=== PATIENT | female | born 1955 | race Caucasian/White ===

== ENCOUNTER → 2019-01-13 | Outpatient (CLI) | payer OTHER ==
[~2019-01-13] MED LIST: ALBU17IN INH; ALBU83IN INH; ALLO100T PO; ATEN50TA2 PO; BUDE180INH INH; CITA20TA6 PO; HYDR50TAB PO; KLOR10TA76 PO; LEVA1TAB2 PO; LEVO88TA3 PO; MELO7.5T7 PO; METF500T13 PO; NEUR300C PO; PRAV80TA2 PO; PRED-351 PO; SOMA350T PO
[2019-01-13 12:42] LABS: BASO # 0.1 10^3/uL (0.0-0.2); EOS # 0.2 10^3/uL (0.0-0.50); EOS % 2.9 % (0.0-3.0); HEMATOCRIT 44.6 % (36.0-47.0); HEMOGLOBIN 14.7 g/dl (12.0-15.5); LYMPH # 2.1 10^3/uL (1.5-4.5); LYMPH % 25.6 % (24.0-44.0); MEAN CORPUSCULAR HEMOGLOBIN 27.5 pg (27.0-33.0); MEAN CORPUSCULAR VOLUME 83.4 fl (80.0-96.0); MONO # 0.6 10^3/uL (0.0-0.8); MONO % 6.7 % (0.0-5.0); NEUTROPHILS # 5.2 10^3/uL (1.8-7.7); NEUTROPHILS % 63.4 % (36.0-66.0); PLATELET COUNT, AUTOMATED 261 10^3/uL (150-450); RED BLOOD COUNT 5.35 10^6/uL (4.00-5.40); WHITE BLOOD COUNT 8.2 10^3/uL (4.0-10.0)
[2019-01-13 13:38] LABS: BLOOD UREA NITROGEN 13 MG/DL (7-18); CALCIUM LEVEL 9.6 MG/DL (8.8-10.2); CARBON DIOXIDE LEVEL 31 MEQ/L (21-32); CHLORIDE LEVEL 95 MEQ/L (98-107); CHOLESTEROL LEVEL 210 MG/DL (<200); CHOLESTEROL RISK RATIO 3.818 (<5); CREATININE FOR GFR 0.64 MG/DL (0.55-1.30); FREE T4 1.22 NG/DL (0.76-1.46); GLOMERULAR FILTRATION RATE > 60.0 (>45); GLUCOSE, FASTING 99 MG/DL (70-100); HDL CHOLESTEROL 55 MG/DL (>40); LDL CHOLESTEROL 128 MG/DL (<100); NON-HDL-C 155 MG/DL; POTASSIUM SERUM 3.6 MEQ/L (3.5-5.1); SODIUM LEVEL 136 MEQ/L (136-145); TRIGLYCERIDES LEVEL 137 MG/DL (<150)
[2019-01-13 14:48] LABS: HEMOGLOBIN A1c 6.1 %
== END ==
LOC: M LAB 11:40
DX: Z00.00 Encounter for general adult medical examination without abnormal findings (principal)

== ENCOUNTER 2019-03-11 08:29 | Day surgery (SDC) | payer OTHER ==
[~2019-03-11] VITALS: Ht 167.6 cm; Wt 104.3 kg
[~2019-03-11 08:29] MED LIST changes: +ACETAMINOPHEN 325 MG TAB PO PRN; +ARNU1INH INH; +BSS with VANC/TOB/EPI for EYE CASES IR ONE; +CYCLOPENTOLATE 2% OPHTH SOLN 2ML BTL OD ONE; +HEALON DUET PRO(HEALON 10MG/ML 0.55ML & HEALON ENDOCOAT 30MG/ML 0.85ML) As Ordered ONE; +LIDOCAINE 1% SDV 5 ML VIAL As Ordered ONE; +LIDOCAINE 3.5 % 1ML OPHTH TOPICAL GEL OU ONE; +MIDAZOLAM INJ 2 MG/2 ML VIAL (J2250) As Ordered ONE; +MOBI4TAB PO; +MOXIFLOXACIN IN BSS 0.25MG/0.25ML INTRACAMERAL INJ (OR EYE ONLY)(J2280) As Ordered ONE; +OFLOXACIN 0.3 % (OCUFLOX) OPTH SOL 5ML OD ONE; +PHENYLEPHRINE 2.5% OPHTH SOL 2ML OD ONE; +PHENYLEPHRINE HCL 10 % OPHTH. SOL 5ML OD PRN; +POVIDONE-IODINE 5% OPHTH PREP SOL 30ML As Ordered ONE; +PROPARACAINE 0.5% OPHTH SOL 15ML OD PRN; +TRIAMCINOLONE PRES FR 40 MG/ML 1ML(TRIESENCE)(OR EYE ONLY)(J3300 PER 1MG) As Ordered ONE; +TROPICAMIDE 1% OPHTH SOLN 2ML OD ONE; +VENTAER INH
[2019-03-11] MEDS ORDERED: fentaNYL 100 MCG/2 ML INJECTION (J3010) As Ordered ONE (12:24)
[2019-03-11] MEDS ORDERED: TRIMETHOBENZAMIDE 300 MG CAP PO PRN (13:00)
[2019-03-11] MEDS ORDERED: AcetaZOLAMIDE 500 MG ER CAP PO ONE (13:00)
[2019-03-11 13:23] VITALS: BP 153/69
== END 2019-03-11 13:27 | disposition home or self-care (01) ==
LOC: M SDC 08:29
PROVIDERS: ATTEND Ophthalmology
DX: H25.9 Unspecified age-related cataract (principal); I10 Essential (primary) hypertension; E78.5 Hyperlipidemia, unspecified; E11.9 Type 2 diabetes mellitus without complications; F17.210 Nicotine dependence, cigarettes, uncomplicated; J45.909 Unspecified asthma, uncomplicated; M10.9 Gout, unspecified; F32.9 Major depressive disorder, single episode, unspecified; F41.9 Anxiety disorder, unspecified; Z79.51 Long term (current) use of inhaled steroids; Z79.899 Other long term (current) drug therapy; Z92.3 Personal history of irradiation; Z79.84 Long term (current) use of oral hypoglycemic drugs
CPT/HCPCS: 66984; 92015; J2250; J2280; J3010; J3300; V2632

== ENCOUNTER 2019-04-08 06:31 | Day surgery (SDC) | payer OTHER ==
[~2019-04-08] VITALS: Ht 167.6 cm; Wt 102.1 kg
[~2019-04-08 06:31] MED LIST changes: -BSS with VANC/TOB/EPI for EYE CASES IR ONE; -CYCLOPENTOLATE 2% OPHTH SOLN 2ML BTL OD ONE; -HEALON DUET PRO(HEALON 10MG/ML 0.55ML & HEALON ENDOCOAT 30MG/ML 0.85ML) As Ordered ONE; -LIDOCAINE 1% SDV 5 ML VIAL As Ordered ONE; -LIDOCAINE 3.5 % 1ML OPHTH TOPICAL GEL OU ONE; -MIDAZOLAM INJ 2 MG/2 ML VIAL (J2250) As Ordered ONE; -MOXIFLOXACIN IN BSS 0.25MG/0.25ML INTRACAMERAL INJ (OR EYE ONLY)(J2280) As Ordered ONE; -OFLOXACIN 0.3 % (OCUFLOX) OPTH SOL 5ML OD ONE; -PHENYLEPHRINE 2.5% OPHTH SOL 2ML OD ONE; -PHENYLEPHRINE HCL 10 % OPHTH. SOL 5ML OD PRN; -POVIDONE-IODINE 5% OPHTH PREP SOL 30ML As Ordered ONE; -PROPARACAINE 0.5% OPHTH SOL 15ML OD PRN; -TRIAMCINOLONE PRES FR 40 MG/ML 1ML(TRIESENCE)(OR EYE ONLY)(J3300 PER 1MG) As Ordered ONE; -TROPICAMIDE 1% OPHTH SOLN 2ML OD ONE
[2019-04-08] MEDS ORDERED: TROPICAMIDE 1% OPHTH SOLN 2ML OS ONE (07:00)
[2019-04-08] MEDS ORDERED: OFLOXACIN 0.3 % (OCUFLOX) OPTH SOL 5ML OS ONE (07:00)
[2019-04-08] MEDS ORDERED: CYCLOPENTOLATE 2% OPHTH SOLN 2ML BTL OS ONE (07:00)
[2019-04-08] MEDS ORDERED: PHENYLEPHRINE HCL 10 % OPHTH. SOL 5ML OS PRN (07:00)
[2019-04-08] MEDS ORDERED: LIDOCAINE 3.5 % 1ML OPHTH TOPICAL GEL OU ONE (07:00)
[2019-04-08] MEDS ORDERED: PHENYLEPHRINE 2.5% OPHTH SOL 2ML OS ONE (07:00)
[2019-04-08] MEDS ORDERED: BSS with VANC/TOB/EPI for EYE CASES IR ONE (07:00)
[2019-04-08] MEDS ORDERED: PROPARACAINE 0.5% OPHTH SOL 15ML OS PRN (07:01)
[2019-04-08] MEDS ORDERED: TRIAMCINOLONE PRES FR 40 MG/ML 1ML(TRIESENCE)(OR EYE ONLY)(J3300 PER 1MG) As Ordered ONE (07:05)
[2019-04-08] MEDS ORDERED: POVIDONE-IODINE 5% OPHTH PREP SOL 30ML As Ordered ONE (07:05)
[2019-04-08] MEDS ORDERED: LIDOCAINE 1% SDV 5 ML VIAL As Ordered ONE (07:05)
[2019-04-08] MEDS ORDERED: HEALON DUET PRO(HEALON 10MG/ML 0.55ML & HEALON ENDOCOAT 30MG/ML 0.85ML) As Ordered ONE (07:06)
[2019-04-08] MEDS ORDERED: MOXIFLOXACIN IN BSS 0.25MG/0.25ML INTRACAMERAL INJ (OR EYE ONLY)(J2280) As Ordered ONE (07:06)
[2019-04-08] MEDS ORDERED: fentaNYL 100 MCG/2 ML INJECTION (J3010) As Ordered ONE (09:12)
[2019-04-08] MEDS ORDERED: MIDAZOLAM INJ 2 MG/2 ML VIAL (J2250) As Ordered ONE (09:12)
[2019-04-08] MEDS ORDERED: ONDANSETRON 4MG/2ML VIAL (J2405) IV PRN (09:45)
[2019-04-08] MEDS ORDERED: AcetaZOLAMIDE 500 MG ER CAP As Ordered ONE (09:47)
[2019-04-08] MEDS ORDERED: AcetaZOLAMIDE 500 MG ER CAP PO ONE (10:00)
[2019-04-08] MEDS ORDERED: TRIMETHOBENZAMIDE 300 MG CAP PO PRN (10:00)
[2019-04-08 10:15] VITALS: BP 127/60
== END 2019-04-08 10:30 | disposition home or self-care (01) ==
LOC: M SDC 06:31
PROVIDERS: ATTEND Ophthalmology
DX: H25.9 Unspecified age-related cataract (principal); I10 Essential (primary) hypertension; E78.5 Hyperlipidemia, unspecified; E11.9 Type 2 diabetes mellitus without complications; E03.9 Hypothyroidism, unspecified; J45.909 Unspecified asthma, uncomplicated; Z79.84 Long term (current) use of oral hypoglycemic drugs; Z79.899 Other long term (current) drug therapy; Z79.51 Long term (current) use of inhaled steroids; F17.210 Nicotine dependence, cigarettes, uncomplicated; F32.9 Major depressive disorder, single episode, unspecified; F41.9 Anxiety disorder, unspecified; Z92.3 Personal history of irradiation
CPT/HCPCS: 66984; 92015; J2250; J2280; J3010; J3300; V2632

== ENCOUNTER 2019-08-11 10:16 | Emergency (ER) | payer MEDICARE, OTHER ==
[~2019-08-11] VITALS: Ht 167.6 cm; Wt 122.7 kg
[~2019-08-11 10:16] MED LIST changes: -ACETAMINOPHEN 325 MG TAB PO PRN
[2019-08-11 11:49] LABS: BASO # 0.1 10^3/uL (0.0-0.2); EOS # 0.5 10^3/uL (0.0-0.5); EOS % 6.1 % (0.0-3.0); HEMATOCRIT 45.5 % (36.0-47.0); HEMOGLOBIN 15.2 g/dl (12.0-15.5); LYMPH # 1.6 10^3/uL (1.5-5.0); LYMPH % 18.6 % (24.0-44.0); MEAN CORPUSCULAR HEMOGLOBIN 28.8 pg (27.0-33.0); MEAN CORPUSCULAR HGB CONC 33.4 g/dl (32.0-36.5); MEAN CORPUSCULAR VOLUME 86.3 fl (80.0-96.0); MONO # 0.5 10^3/uL (0.0-0.8); NEUTROPHILS # 5.7 10^3/uL (1.5-8.5); NEUTROPHILS % 67.9 % (36.0-66.0); PLATELET COUNT, AUTOMATED 280 10^3/uL (150-450); RED BLOOD COUNT 5.27 10^6/uL (4.00-5.40); WHITE BLOOD COUNT 8.4 10^3/uL (4.0-10.0)
--- NOTE | 2019-08-11 12:04 | REP ---
Clinical: Cellulitis with history of insect bite. Technique: AP, lateral, bilateral oblique views right foot . Findings: The osseous structures and joint spaces are intact and normal. There is no evidence for acute fracture or dislocation. Surrounding soft tissues are unremarkable. No subcutaneous emphysema or radiodense foreign body. Impression: No subcutaneous emphysema or foreign body. No osseous involvement. Electronically Signed by Abdulaziz Chaudhari MD 08/11/2019 11:56 A
[2019-08-11 12:12] LABS: ERYTHROCYTE SEDIMENTATION RATE 26 mm/hr (0-30)
[2019-08-11 12:14] VITALS: BP 133/72
[2019-08-11] MEDS ORDERED: CLEO300C2 PO (12:51)
== END 2019-08-11 13:10 | disposition home or self-care (01) ==
LOC: M ED 10:16
DX: S90.861A Insect bite (nonvenomous), right foot, initial encounter (principal); L03.115 Cellulitis of right lower limb; W57.XXXA Bitten or stung by nonvenomous insect and other nonvenomous arthropods, initial encounter; Y92.009 Unspecified place in unspecified non-institutional (private) residence as the place of occurrence of the external cause; F17.200 Nicotine dependence, unspecified, uncomplicated; I10 Essential (primary) hypertension; Z79.899 Other long term (current) drug therapy

== ENCOUNTER → 2019-08-13 | Outpatient (CLI) | payer MEDICARE, MEDICAID ==
[~2019-08-13] MED LIST changes: +CLEO300C2 PO
[2019-08-13 11:09] LABS: ALBUMIN 3.5 GM/DL (3.2-5.2); ALT/SGPT 16 U/L (12-78); BILIRUBIN,TOTAL 0.9 MG/DL (0.2-1.0); BLOOD UREA NITROGEN 11 MG/DL (7-18); CALCIUM LEVEL 9.3 MG/DL (8.8-10.2); CARBON DIOXIDE LEVEL 33 MEQ/L (21-32); CHLORIDE LEVEL 94 MEQ/L (98-107); CHOLESTEROL LEVEL 169 MG/DL (<200); CHOLESTEROL RISK RATIO 3.072 (<5); CREATININE FOR GFR 0.66 MG/DL (0.55-1.30); FREE T4 1.37 NG/DL (0.76-1.46); GLOMERULAR FILTRATION RATE > 60.0 (>45); GLUCOSE, FASTING 95 MG/DL (70-100); HDL CHOLESTEROL 55 MG/DL (>40); LDL CHOLESTEROL 84 MG/DL (<100); NON-HDL-C 114 MG/DL; POTASSIUM SERUM 3.4 MEQ/L (3.5-5.1); SODIUM LEVEL 133 MEQ/L (136-145); TOTAL PROTEIN 6.8 GM/DL (6.4-8.2); TRIGLYCERIDES LEVEL 149 MG/DL (<150)
[2019-08-13 11:18] LABS: CREATININE, URINE 43.2 MG/DL; MALB URINE SIEMENS < 5.0 MG/L; MAU/CREAT RATIO 11.5 MCG/MG (0.0-30.0)
[2019-08-13 11:20] LABS: HEMOGLOBIN A1c 6.1 %
== END ==
LOC: M LAB 08:57
PROVIDERS: ATTEND Physician Assistant
DX: E03.9 Hypothyroidism, unspecified (principal); E78.2 Mixed hyperlipidemia; I10 Essential (primary) hypertension; R73.01 Impaired fasting glucose

== ENCOUNTER → 2019-11-07 | Outpatient (CLI) | payer MEDICARE, OTHER ==
--- NOTE | 2019-11-07 11:07 | REP ---
BILATERAL SCREENING DIGITAL MAMMOGRAM WITH 3D TOMOSYNTHESIS: There are no palpable abnormalities or other breast complaints. The the patient states she has not had a clinical breast examination over a year. The Tyrer-Cuzick Score is: 5.1% . The the patient indicates that there has been 10 years since her prior mammogram and cannot recall where the prior study was performed. Therefore, there are no prior studies available. The current examination is a new baseline study. There are scattered areas of fibroglandular density. There is no dominant mass, micro calcific cluster or architectural distortion that would indicate malignancy. There are no additional findings on 3D tomosynthesiss. There is no change from the prior study. Impression: BIRADS/ACR category 1 mammogram. Negative. Recommendation: Routine annual screening mammography. This mammogram was interpreted with the aid of a FDA approved computer-aided detection system. A. Negative mammogram reports should not delay biopsy if a dominant or clinically suspicious mass is present. B. Not all breast cancers are identified by mammography or tomosynthesis. C. Adenosis and dense breasts may obscure an underlying neoplasm. Patient letter M1. Electronically Signed by Jh Moseley MD 11/07/2019 10:59 A
--- NOTE | 2019-11-12 13:34 | DEXA ---
AP SPINE L1 - L4 1.117 -0.6 1.0 LT FEMUR TOTAL 0.987 -0.2 1.0 LT NECK 0.849 -1.4 0.1 RT FEMUR TOTAL 0.950 -0.5 0.8 RT NECK 0.850 -1.4 0.1 TOTAL BODY TOTAL OTHER COMMENTS: Normal bone densitometry of the spine. There is low bone density of the left hip based on femoral neck T score -1.4, left. There is low bone density of the right hip based on femoral neck T score -1.4 right. There is degenerative change in the spine which may artificially elevate the BMD. FOLLOW-UP: Recommendation for the next bone density exam: 2 years. VAL
== END ==
LOC: M WHC 08:31
PROVIDERS: ATTEND Physician Assistant
DX: Z12.31 Encounter for screening mammogram for malignant neoplasm of breast (principal); Z13.820 Encounter for screening for osteoporosis; M85.89 Other specified disorders of bone density and structure, multiple sites

== ENCOUNTER → 2020-06-09 | Outpatient (CLI) | payer OTHER, MEDICAID ==
--- NOTE | 2020-07-08 10:45 | REP ---
LOW-DOSE LUNG SCREENING CT CLINICAL: High risk factors. TECHNIQUE: Low-dose CT images from the thoracic inlet to the upper abdomen using lung screening technique. COMPARISON: Chest CT dated 11/15/2008. FINDINGS: Minimal linear scarring at the left base is appreciated. The lung puga are otherwise clear and without consolidation, significant nodule, or mass lesion. No obvious effusion or pneumothorax. Tracheobronchial tree appears patent. IMPRESSION: Lung-RADS Category 1 examination. Management and recommendations include annual low-dose CT screening. MTDD
== END ==
LOC: M RAD 07:36
PROVIDERS: ATTEND Physician Assistant
DX: F17.210 Nicotine dependence, cigarettes, uncomplicated (principal)

== ENCOUNTER → 2020-07-16 | Outpatient (CLI) | payer OTHER, MEDICAID ==
[2020-07-16 10:50] LABS: HEMOGLOBIN A1c 8.1 %
[2020-07-16 11:01] LABS: ALBUMIN 3.2 GM/DL (3.2-5.2); ALT/SGPT 26 U/L (12-78); BILIRUBIN,TOTAL 1.1 MG/DL (0.2-1.0); BLOOD UREA NITROGEN 12 MG/DL (7-18); CALCIUM LEVEL 9.4 MG/DL (8.8-10.2); CARBON DIOXIDE LEVEL 31 MEQ/L (21-32); CHLORIDE LEVEL 98 MEQ/L (98-107); CREATININE FOR GFR 0.78 MG/DL (0.55-1.30); FREE T4 1.33 NG/DL (0.76-1.46); GLOMERULAR FILTRATION RATE > 60.0 (>45); GLUCOSE, FASTING 191 MG/DL (70-100); POTASSIUM SERUM 3.6 MEQ/L (3.5-5.1); SODIUM LEVEL 135 MEQ/L (136-145); TOTAL PROTEIN 6.7 GM/DL (6.4-8.2)
--- NOTE | 2020-07-26 14:15 | REP ---
RIGHT HUMERUS RADIOGRAPHS: 3-VIEWS HISTORY: Pain in the right arm. FINDINGS: There is osteoarthritic spurring at the glenohumeral articulation and osteoarthritic changes and chondrocalcinosis are noted at the acromioclavicular joint. These articulations are normally aligned. No fracture is seen. No abnormality is noted at the elbow on these radiographs. IMPRESSION: Glenohumeral and acromioclavicular joint osteoarthritis. No acute bony abnormality. DD: VAL
--- NOTE | 2020-07-26 14:16 | REP ---
LEFT KNEE SERIES AP AND LATERAL VIEWS HISTORY: Pain in the left knee. COMPARISON: Left knee radiographs 08/11/2010. FINDINGS: There is three-compartment osteoarthritis of the left knee. Joint space narrowing and sclerosis are noted in the medial compartment. Some joint space narrowing and spur formation seen in the patellofemoral compartment. There is a large subcortical cyst in the medial tibial plateau surrounded by sclerosis. This cyst measures 1.6 cm in greatest diameter. The findings have progressed in the interval since the 2009 study and the subcortical cyst is new. On lateral radiograph, there are ossific densities at the posterior joint line. There appear to be two of these densities in addition to posterior osteophyte formation. These could be loose bodies. There is no evidence of joint effusion. No erosive changes. IMPRESSION: Moderate to advanced three-compartment osteoarthritis, most pronounced in the medial compartment. Possible loose bodies posteriorly. Subcortical cyst formation in the medial tibial plateau. Chondrocalcinosis. MTDD
== END ==
LOC: M LAB 09:48
PROVIDERS: ATTEND Nurse Practitioner Family
DX: E03.9 Hypothyroidism, unspecified (principal); I10 Essential (primary) hypertension; R73.01 Impaired fasting glucose; M19.011 Primary osteoarthritis, right shoulder; M17.12 Unilateral primary osteoarthritis, left knee

== ENCOUNTER → 2021-05-10 | Outpatient (REF) | payer OTHER, MEDICAID ==
[2021-05-10 13:35] LABS: ALBUMIN 3.7 GM/DL (3.2-5.2); ALT/SGPT 21 U/L (12-78); BILIRUBIN,TOTAL 1.2 MG/DL (0.2-1.0); BLOOD UREA NITROGEN 13 MG/DL (7-18); CALCIUM LEVEL 9.9 MG/DL (8.8-10.2); CARBON DIOXIDE LEVEL 30 MEQ/L (21-32); CHLORIDE LEVEL 96 MEQ/L (98-107); CHOLESTEROL LEVEL 154 MG/DL (<200); CHOLESTEROL RISK RATIO 3.142 (<5); FREE T4 1.47 NG/DL (0.76-1.46); GLOMERULAR FILTRATION RATE > 60.0 (>45); GLUCOSE, FASTING 93 MG/DL (70-100); HDL CHOLESTEROL 49 MG/DL (>40); LDL CHOLESTEROL 75 MG/DL (<100); NON-HDL-C 105 MG/DL; POTASSIUM SERUM 4.3 MEQ/L (3.5-5.1); SODIUM LEVEL 135 MEQ/L (136-145); TRIGLYCERIDES LEVEL 151 MG/DL (<150)
[2021-05-10 13:36] LABS: MALB URINE SIEMENS 12.4 MG/L; MAU/CREAT RATIO 8.8 MCG/MG (0.0-30.0)
[2021-05-10 13:52] LABS: HEMOGLOBIN A1c 6.2 %
== END ==
LOC: M LABDRWAD 12:23
PROVIDERS: ATTEND Nurse Practitioner Family
DX: E11.9 Type 2 diabetes mellitus without complications (principal); E03.9 Hypothyroidism, unspecified

== ENCOUNTER → 2021-06-28 | Outpatient (REF) | payer OTHER, MEDICAID ==
[~2021-06-28] MED LIST changes: -KLOR10TA76 PO; +POTA-136 PO
[2021-06-28 18:52] LABS: BLOOD UREA NITROGEN 7 MG/DL (7-18); CALCIUM LEVEL 9.9 MG/DL (8.8-10.2); CARBON DIOXIDE LEVEL 31 MEQ/L (21-32); CHLORIDE LEVEL 92 MEQ/L (98-107); CREATININE FOR GFR 0.71 MG/DL (0.55-1.30); GLOMERULAR FILTRATION RATE > 60.0 (>45); GLUCOSE, FASTING 151 MG/DL (70-100); POTASSIUM SERUM 3.9 MEQ/L (3.5-5.1); SODIUM LEVEL 131 MEQ/L (136-145)
== END ==
LOC: M LABDRWAD 17:54
PROVIDERS: ATTEND Nurse Practitioner Family
DX: Z01.812 Encounter for preprocedural laboratory examination (principal)

== ENCOUNTER → 2021-11-11 | Outpatient (REF) | payer OTHER, MEDICAID ==
[2021-11-11 18:23] LABS: HEMOGLOBIN A1c 5.6 %
[2021-11-11 18:45] LABS: ALBUMIN 3.8 GM/DL (3.2-5.2); ALT/SGPT 15 U/L (12-78); BILIRUBIN,TOTAL 0.9 MG/DL (0.2-1.0); BLOOD UREA NITROGEN 13 MG/DL (7-18); CALCIUM LEVEL 10.2 MG/DL (8.8-10.2); CARBON DIOXIDE LEVEL 35 MEQ/L (21-32); CHLORIDE LEVEL 96 MEQ/L (98-107); CHOLESTEROL LEVEL 159 MG/DL (<200); CHOLESTEROL RISK RATIO 3.057 (<5); FREE T4 1.31 NG/DL (0.76-1.46); GLOMERULAR FILTRATION RATE > 60.0 (>45); GLUCOSE, FASTING 83 MG/DL (70-100); HDL CHOLESTEROL 52 MG/DL (>40); LDL CHOLESTEROL 67 MG/DL (<100); NON-HDL-C 107 MG/DL; POTASSIUM SERUM 3.9 MEQ/L (3.5-5.1); SODIUM LEVEL 135 MEQ/L (136-145); TRIGLYCERIDES LEVEL 200 MG/DL (<150)
== END ==
LOC: M LABDRWAD 16:55
PROVIDERS: ATTEND Nurse Practitioner Family
DX: E03.9 Hypothyroidism, unspecified (principal); E11.9 Type 2 diabetes mellitus without complications; E78.2 Mixed hyperlipidemia

== ENCOUNTER → 2022-01-05 | Outpatient (CLI) | payer OTHER, MEDICAID | LOC: M RAD 10:18 | PROVIDERS: ATTEND Nurse Practitioner Family | DX: Z87.891 Personal history of nicotine dependence (principal) ==

== ENCOUNTER → 2022-04-06 | Outpatient (CLI) | payer MEDICAID, OTHER ==
[~2022-04-06] MED LIST changes: +ALBU2.5V10 INH; -ALBU83IN INH
[2022-04-06 13:39] LABS: HEMOGLOBIN A1c 5.4 %
[2022-04-06 14:11] LABS: ALBUMIN 3.9 GM/DL (3.2-5.2); ALT/SGPT 15 U/L (12-78); BILIRUBIN,TOTAL 1.1 MG/DL (0.2-1.0); BLOOD UREA NITROGEN 9 MG/DL (7-18); CALCIUM LEVEL 10.6 MG/DL (8.8-10.2); CARBON DIOXIDE LEVEL 30 MEQ/L (21-32); CHLORIDE LEVEL 97 MEQ/L (98-107); CHOLESTEROL LEVEL 180 MG/DL (<200); CHOLESTEROL RISK RATIO 3.272 (<5); CREATININE FOR GFR 0.64 MG/DL (0.55-1.30); FREE T4 1.37 NG/DL (0.76-1.46); GLOMERULAR FILTRATION RATE > 60.0 (>45); GLUCOSE, FASTING 88 MG/DL (70-100); HDL CHOLESTEROL 55 MG/DL (>40); LDL CHOLESTEROL 97 MG/DL (<100); NON-HDL-C 125 MG/DL; SODIUM LEVEL 134 MEQ/L (136-145); TOTAL PROTEIN 7.3 GM/DL (6.4-8.2); TRIGLYCERIDES LEVEL 139 MG/DL (<150)
[2022-04-06 14:18] LABS: CREATININE, URINE 48.3 MG/DL; MALB URINE SIEMENS < 5.0 MG/L; MAU/CREAT RATIO 10.3 MCG/MG (0.0-30.0)
== END ==
LOC: M RAD 11:28
PROVIDERS: ATTEND Nurse Practitioner Family
DX: S92.424A Nondisplaced fracture of distal phalanx of right great toe, initial encounter for closed fracture (principal); E11.9 Type 2 diabetes mellitus without complications; E03.9 Hypothyroidism, unspecified; E78.2 Mixed hyperlipidemia

== ENCOUNTER → 2022-06-11 | Outpatient (CLI) | payer OTHER, MEDICAID ==
[~2022-06-11] MED LIST changes: +MELO15TA28 PO; +OZEM2INJ SC
== END ==
LOC: M LABSMTC 11:37
PROVIDERS: ATTEND Anesthesiology
DX: Z01.812 Encounter for preprocedural laboratory examination (principal); Z20.822 Contact with and (suspected) exposure to COVID-19

== ENCOUNTER 2022-06-14 07:03 | Day surgery (SDC) | payer OTHER, MEDICAID ==
[~2022-06-14] VITALS: Ht 162.6 cm; Wt 103.8 kg
[~2022-06-14 07:03] MED LIST changes: +NS 1,000 ML IV ONE
[2022-06-14] MEDS ORDERED: propofoL 200 MG/20 ML VIAL As Ordered ONE ×2 (08:01→08:15)
[2022-06-14 08:43] VITALS: BP 145/59
== END 2022-06-14 08:56 | disposition home or self-care (01) ==
LOC: M OPP 07:03
PROVIDERS: ATTEND Surgery
DX: Z12.11 Encounter for screening for malignant neoplasm of colon (principal); D12.0 Benign neoplasm of cecum; K63.5 Polyp of colon; I10 Essential (primary) hypertension; E11.9 Type 2 diabetes mellitus without complications; E03.9 Hypothyroidism, unspecified; J44.9 Chronic obstructive pulmonary disease, unspecified; Z79.51 Long term (current) use of inhaled steroids; Z79.84 Long term (current) use of oral hypoglycemic drugs; Z79.891 Long term (current) use of opiate analgesic; Z79.899 Other long term (current) drug therapy; F17.200 Nicotine dependence, unspecified, uncomplicated; Z96.82 Presence of neurostimulator; Z88.6 Allergy status to analgesic agent

== ENCOUNTER → 2022-09-19 | Outpatient (CLI) | payer OTHER ==
[~2022-09-19] MED LIST changes: -NS 1,000 ML IV ONE
[2022-09-19 16:15] LABS: CREATININE, URINE 49.1 MG/DL
[2022-09-19 16:16] LABS: MALB URINE SIEMENS < 5.0 MG/DL; MAU/CREAT RATIO 10.1 MCG/MG (0.0-30.0)
[2022-09-19 16:17] LABS: ALBUMIN 3.7 G/DL (3.2-5.2); ALKALINE PHOSPHATASE 61 U/L (46-116); ALT/SGPT 16 U/L (7.0-40); AST/SGOT 17 U/L (<34); BILIRUBIN,TOTAL 1.1 MG/DL (0.3-1.2); BLOOD UREA NITROGEN 10 MG/DL (9-23); CALCIUM LEVEL 10.1 MG/DL (8.3-10.6); CARBON DIOXIDE LEVEL 31 MMOL/L (20-31); CHLORIDE LEVEL 92 MMOL/L (98-107); CHOLESTEROL LEVEL 158 MG/DL (<200); CHOLESTEROL RISK RATIO 2.78 (<5); CREATININE FOR GFR 0.67 MG/DL (0.55-1.30); GLOMERULAR FILTRATION RATE > 60.0 (>45); GLUCOSE, FASTING 93 MG/DL (74-106); HDL CHOLESTEROL 56.8 MG/DL (>40); NON-HDL-C 101 MG/DL; POTASSIUM SERUM 3.8 MMOL/L (3.5-5.1); SODIUM LEVEL 130 MMOL/L (136-145); TOTAL PROTEIN 6.8 G/DL (5.7-8.2); TRIGLYCERIDES LEVEL 126 MG/DL (<150)
[2022-09-19 16:18] LABS: THYROID STIMULATING HORMONE 2.763 uIU/ML (0.55-4.78)
[2022-09-19 19:08] LABS: HEMOGLOBIN A1c 5.2 % (4.0-6.0)
== END ==
LOC: M PLALAB 13:51
PROVIDERS: ATTEND Nurse Practitioner Family
DX: E11.9 Type 2 diabetes mellitus without complications (principal); E03.9 Hypothyroidism, unspecified; E78.2 Mixed hyperlipidemia

== ENCOUNTER → 2022-09-19 | Outpatient (CLI) | payer MEDICAID, OTHER | LOC: M WHC 11:29 | PROVIDERS: ATTEND Nurse Practitioner Family | DX: Z12.31 Encounter for screening mammogram for malignant neoplasm of breast (principal); Z13.820 Encounter for screening for osteoporosis; M85.89 Other specified disorders of bone density and structure, multiple sites; E11.9 Type 2 diabetes mellitus without complications; E03.9 Hypothyroidism, unspecified; E78.2 Mixed hyperlipidemia ==

== ENCOUNTER → 2022-11-03 | Outpatient (CLI) | payer OTHER ==
[2022-11-03 17:33] LABS: URIC ACID 4.4 MG/DL (3.1-7.8)
[2022-11-03 17:36] LABS: CORTISOL AM 5.6 UG/DL (4.3-22.4)
== END ==
LOC: M LABDRWAD 11:57
PROVIDERS: ATTEND Nurse Practitioner Family
DX: E87.1 Hypo-osmolality and hyponatremia (principal)

== ENCOUNTER → 2023-03-21 | Outpatient (REF) | payer OTHER ==
[2023-03-21 13:51] LABS: HEMOGLOBIN A1c 5.2 % (4.0-6.0)
== END ==
LOC: M LABDRWAD 12:47
PROVIDERS: ATTEND Nurse Practitioner Family
DX: E11.9 Type 2 diabetes mellitus without complications (principal)

== ENCOUNTER 2023-04-02 15:02 | Inpatient (IN) | payer OTHER ==
[~2023-04-02] VITALS: Ht 162.6 cm; Wt 108.7 kg
[2023-04-02] MEDS ORDERED: ARIP1TAB6 PO (15:25)
[2023-04-02] MEDS: IPRATROPIUM 0.5MG/ALBUTEROL 2.5MG INH SOL UD 3ML (DUONEB) NEB PRN ×3 (15:57→16:06)
[2023-04-02 16:28] LABS: BASO % 0.3 % (0.0-1.0); EOS # 0.1 10^3/uL (0.0-0.5); EOS % 1.1 % (0.0-3.0); HEMATOCRIT 40.4 % (36.0-47.0); LYMPH # 1.3 10^3/uL (1.5-5.0); LYMPH % 18.1 % (24.0-44.0); MEAN CORPUSCULAR HEMOGLOBIN 27.8 pg (27.0-33.0); MEAN CORPUSCULAR HGB CONC 34.7 g/dl (32.0-36.5); MEAN CORPUSCULAR VOLUME 80.3 fl (80.0-96.0); MONO # 0.5 10^3/uL (0.0-0.8); NEUTROPHILS # 5.3 10^3/uL (1.5-8.5); NEUTROPHILS % 73.2 % (36.0-66.0); PLATELET COUNT, AUTOMATED 241 10^3/uL (150-450); RED BLOOD COUNT 5.03 10^6/uL (4.00-5.40); WHITE BLOOD COUNT 7.2 10^3/uL (4.0-10.0)
[2023-04-02 16:57] LABS: BLOOD UREA NITROGEN 12 MG/DL (9-23); CALCIUM LEVEL 8.8 MG/DL (8.3-10.6); CARBON DIOXIDE LEVEL 32 MMOL/L (20-31); CHLORIDE LEVEL 88 MMOL/L (98-107); CREATININE FOR GFR 0.68 MG/DL (0.55-1.30); GLOMERULAR FILTRATION RATE > 60.0 (>45); GLUCOSE, FASTING 110 MG/DL (74-106); POTASSIUM SERUM 3.1 MMOL/L (3.5-5.1); SODIUM LEVEL 126 MMOL/L (136-145)
[2023-04-02 17:12] LABS: ABG BASE EXCESS 1.9 (-2.0-2.0); ABG HCO3 25.7 MMOL/L (22.0-26.0); ABG O2 SATURATION 99.3 % (95.0-99.0); ABG PARTIAL PRESSURE CO2 37.8 mmHg (35.0-45.0); ABG STANDARD HCO3 26.2 MMOL/L. (22.0-26.0); ABG TOTAL CO2 26.9 MMOL/L (23.0-31.0); ABG pH (ARTERIAL) 7.451 UNITS (7.350-7.450)
[2023-04-02] MEDS ORDERED: POTASSIUM CHLORIDE 10MEQ SR TABLET PO ONE (17:55)
[2023-04-02] MEDS: SYMBICORT 160/4.5MCG INHALER 6GM INH SCH (20:00)
[2023-04-02] MEDS: methylPREDNISolone 40MG 1ML VIAL IV SCH (20:00)
[2023-04-02] MEDS: ALBUTEROL SULFATE 2.5MG/0.5ML INH NEB SOLN NEB SCH (20:00)
[2023-04-02 20:40] VITALS: BP 134/65; TEMP 97.9; O2SAT 91
[2023-04-02] MEDS: INSULIN LISPRO (NovoLOG) PER UNIT SC SCH (21:00)
[2023-04-02] MEDS: DOCUSATE SODIUM 100MG CAPSULE PO SCH (21:00)
[2023-04-02] MEDS ORDERED: DEXTROSE 50% 50ML SYRINGE IV PRN (21:35)
[2023-04-02] MEDS ORDERED: GLUCOSE 4GM CHEW TABLET PO PRN (21:35)
[2023-04-02] MEDS ORDERED: GLUCAGON INJ 1MG VIAL SC PRN (21:35)
[2023-04-02 22:31] LABS: OSMOLALITY URINE 270 MOSM/KG (50-1400)
[2023-04-02 22:50] LABS: SODIUM,RANDOM URINE 59 MMOL/L
[2023-04-02] MEDS: DEXTROMETHORPHAN 60MG/10ML SUSP 90ML BTL(DELSYM) PO SCH (23:09)
[2023-04-02] MEDS: AZITHROMYCIN 250MG TABLET PO SCH (23:10)
[2023-04-03] MEDS: ALBUTEROL SULFATE 2.5MG/0.5ML INH NEB SOLN NEB SCH ×6 (00:25→20:38)
[2023-04-03] MEDS: methylPREDNISolone 40MG 1ML VIAL IV SCH ×3 (04:29→22:00)
[2023-04-03 06:14] LABS: BASO % 0.2 % (0.0-1.0); EOS % 0.2 % (0.0-3.0); HEMOGLOBIN 13.9 g/dl (12.0-15.5); LYMPH # 0.4 10^3/uL (1.5-5.0); LYMPH % 10.7 % (24.0-44.0); MEAN CORPUSCULAR HEMOGLOBIN 27.6 pg (27.0-33.0); MEAN CORPUSCULAR HGB CONC 34.8 g/dl (32.0-36.5); MEAN CORPUSCULAR VOLUME 79.5 fl (80.0-96.0); MONO # 0.1 10^3/uL (0.0-0.8); MONO % 2.2 % (2.0-8.0); NEUTROPHILS # 3.5 10^3/uL (1.5-8.5); NEUTROPHILS % 86.5 % (36.0-66.0); PLATELET COUNT, AUTOMATED 244 10^3/uL (150-450); RED BLOOD COUNT 5.03 10^6/uL (4.00-5.40); WHITE BLOOD COUNT 4.1 10^3/uL (4.0-10.0)
[2023-04-03 06:26] VITALS: BP 157/68; TEMP 97.7; O2SAT 92
[2023-04-03 06:38] LABS: BLOOD UREA NITROGEN 8 MG/DL (9-23); CALCIUM LEVEL 9.2 MG/DL (8.3-10.6); CARBON DIOXIDE LEVEL 28 MMOL/L (20-31); CHLORIDE LEVEL 88 MMOL/L (98-107); CREATININE FOR GFR 0.52 MG/DL (0.55-1.30); GLOMERULAR FILTRATION RATE > 60.0 (>45); GLUCOSE, FASTING 180 MG/DL (74-106); POTASSIUM SERUM 3.3 MMOL/L (3.5-5.1); SODIUM LEVEL 125 MMOL/L (136-145)
[2023-04-03] MEDS: SYMBICORT 160/4.5MCG INHALER 6GM INH SCH ×2 (07:25→20:38)
[2023-04-03] MEDS: NYSTATIN 100,000 UNITS/GM TOPICAL PWD 15GM TOP SCH ×2 (08:24→22:01)
[2023-04-03] MEDS: ENOXAPARIN 40MG/0.4ML SYRINGE (J1650 PER 10MG) SC SCH (08:24)
[2023-04-03] MEDS: INSULIN LISPRO (NovoLOG) PER UNIT SC SCH ×4 (08:25→21:00)
[2023-04-03] MEDS: DOCUSATE SODIUM 100MG CAPSULE PO SCH ×2 (08:25→22:00)
[2023-04-03] MEDS ORDERED: FUROSEMIDE 40MG/4ML VIAL IV ONE ×2 (08:30→17:30)
[2023-04-03] MEDS ORDERED: SEMA0.257 SC (09:00)
[2023-04-03] MEDS ORDERED: CITA40TA7 PO (09:00)
[2023-04-03] MEDS ORDERED: HOME MED LIST COMPLETE! XX SCH (09:05)
[2023-04-03] MEDS: POTASSIUM CHLORIDE 10MEQ SR TABLET PO SCH (10:14)
[2023-04-03] MEDS: PRAVASTATIN 20 MG TAB PO SCH (10:14)
[2023-04-03] MEDS: MELOXICAM (MOBIC) 7.5 MG TAB PO SCH (10:15)
[2023-04-03] MEDS: CitaloPRAM (CeleXA) 20 MG TAB PO SCH (10:15)
[2023-04-03] MEDS: GABAPENTIN 300 MG CAP PO SCH ×2 (10:15→22:00)
[2023-04-03] MEDS: atenoloL 50 MG TAB PO SCH (10:21)
[2023-04-03] MEDS: LEVOTHYROXINE 88MCG TABLET (0.088 MG) PO SCH (10:41)
[2023-04-03] MEDS ORDERED: PREVNAR-20 VACCINE 0.5ML SYRINGE IM.IMMUN ONE (11:00)
[2023-04-03 14:00] VITALS: BP 115/77; TEMP 97.7; O2SAT 90
[2023-04-03] MEDS: DEXTROMETHORPHAN 60MG/10ML SUSP 90ML BTL(DELSYM) PO SCH ×2 (14:33→22:00)
[2023-04-03 14:54] LABS: BLOOD UREA NITROGEN 10 MG/DL (9-23); CALCIUM LEVEL 9.7 MG/DL (8.3-10.6); CARBON DIOXIDE LEVEL 30 MMOL/L (20-31); CHLORIDE LEVEL 86 MMOL/L (98-107); CREATININE FOR GFR 0.56 MG/DL (0.55-1.30); GLOMERULAR FILTRATION RATE > 60.0 (>45); GLUCOSE, FASTING 141 MG/DL (74-106); POTASSIUM SERUM 3.4 MMOL/L (3.5-5.1); SODIUM LEVEL 125 MMOL/L (136-145)
[2023-04-03] MEDS: SODIUM CHLORIDE 1 GM TAB PO SCH (18:27)
[2023-04-03 21:05] VITALS: BP 121/70; TEMP 97.7; O2SAT 90
[2023-04-03] MEDS: AZITHROMYCIN 250MG TABLET PO SCH (22:00)
[2023-04-03 22:52] LABS: BLOOD UREA NITROGEN 12 MG/DL (9-23); CALCIUM LEVEL 9.6 MG/DL (8.3-10.6); CARBON DIOXIDE LEVEL 32 MMOL/L (20-31); CHLORIDE LEVEL 87 MMOL/L (98-107); CREATININE FOR GFR 0.64 MG/DL (0.55-1.30); GLOMERULAR FILTRATION RATE > 60.0 (>45); GLUCOSE, FASTING 195 MG/DL (74-106); POTASSIUM SERUM 3.4 MMOL/L (3.5-5.1); SODIUM LEVEL 125 MMOL/L (136-145)
[2023-04-04] MEDS: ALBUTEROL SULFATE 2.5MG/0.5ML INH NEB SOLN NEB SCH ×7 (00:16→19:41)
[2023-04-04] MEDS: LEVOTHYROXINE 88MCG TABLET (0.088 MG) PO SCH (05:05)
[2023-04-04] MEDS: methylPREDNISolone 40MG 1ML VIAL IV SCH ×3 (05:05→20:31)
[2023-04-04 06:10] LABS: BASO % 0.1 % (0.0-1.0); EOS % 0.2 % (0.0-3.0); HEMATOCRIT 44.6 % (36.0-47.0); HEMOGLOBIN 14.9 g/dl (12.0-15.5); LYMPH # 0.8 10^3/uL (1.5-5.0); LYMPH % 8.3 % (24.0-44.0); MEAN CORPUSCULAR HEMOGLOBIN 27.2 pg (27.0-33.0); MEAN CORPUSCULAR HGB CONC 33.4 g/dl (32.0-36.5); MEAN CORPUSCULAR VOLUME 81.4 fl (80.0-96.0); MONO # 0.4 10^3/uL (0.0-0.8); MONO % 4.8 % (2.0-8.0); NEUTROPHILS # 7.8 10^3/uL (1.5-8.5); NEUTROPHILS % 85.9 % (36.0-66.0); PLATELET COUNT, AUTOMATED 327 10^3/uL (150-450); RED BLOOD COUNT 5.48 10^6/uL (4.00-5.40); WHITE BLOOD COUNT 9.1 10^3/uL (4.0-10.0)
[2023-04-04 06:32] LABS: ALBUMIN 3.9 G/DL (3.2-5.2); ALKALINE PHOSPHATASE 61 U/L (46-116); ALT/SGPT 9 U/L (7.0-40); AST/SGOT 19 U/L (<34); BILIRUBIN,DIRECT 0.4 MG/DL (<0.4); BILIRUBIN,TOTAL 1.3 MG/DL (0.3-1.2); BLOOD UREA NITROGEN 13 MG/DL (9-23); CALCIUM LEVEL 9.7 MG/DL (8.3-10.6); CARBON DIOXIDE LEVEL 31 MMOL/L (20-31); CHLORIDE LEVEL 88 MMOL/L (98-107); CREATININE FOR GFR 0.66 MG/DL (0.55-1.30); GLOMERULAR FILTRATION RATE > 60.0 (>45); GLUCOSE, FASTING 186 MG/DL (74-106); POTASSIUM SERUM 3.3 MMOL/L (3.5-5.1); SODIUM LEVEL 127 MMOL/L (136-145); TOTAL PROTEIN 6.9 G/DL (5.7-8.2)
[2023-04-04 07:11] VITALS: BP 145/74; TEMP 97.7; O2SAT 92
[2023-04-04] MEDS: SYMBICORT 160/4.5MCG INHALER 6GM INH SCH ×2 (07:32→19:41)
[2023-04-04] MEDS ORDERED: FUROSEMIDE 40MG/4ML VIAL IV ONE (07:45)
[2023-04-04] MEDS ORDERED: POTASSIUM CHLORIDE 10MEQ SR TABLET PO ONE (07:45)
[2023-04-04] MEDS: INSULIN LISPRO (NovoLOG) PER UNIT SC SCH ×4 (08:32→20:32)
[2023-04-04] MEDS: SODIUM CHLORIDE 1 GM TAB PO SCH ×3 (08:33→17:27)
[2023-04-04] MEDS: CitaloPRAM (CeleXA) 20 MG TAB PO SCH (08:33)
[2023-04-04] MEDS: GABAPENTIN 300 MG CAP PO SCH ×2 (08:33→20:32)
[2023-04-04] MEDS: DEXTROMETHORPHAN 60MG/10ML SUSP 90ML BTL(DELSYM) PO SCH ×2 (08:33→20:32)
[2023-04-04] MEDS: PRAVASTATIN 20 MG TAB PO SCH (08:33)
[2023-04-04] MEDS: ENOXAPARIN 40MG/0.4ML SYRINGE (J1650 PER 10MG) SC SCH (08:33)
[2023-04-04] MEDS: MELOXICAM (MOBIC) 7.5 MG TAB PO SCH (08:33)
[2023-04-04] MEDS: NYSTATIN 100,000 UNITS/GM TOPICAL PWD 15GM TOP SCH ×2 (08:34→20:31)
[2023-04-04] MEDS: atenoloL 50 MG TAB PO SCH (08:34)
[2023-04-04] MEDS: POTASSIUM CHLORIDE 10MEQ SR TABLET PO SCH (08:34)
[2023-04-04] MEDS: DOCUSATE SODIUM 100MG CAPSULE PO SCH ×2 (08:35→20:32)
[2023-04-04] MEDS ORDERED: POTASSIUM CHLORIDE 10MEQ SR TABLET PO SCH (09:00)
[2023-04-04] MEDS: allopurinoL 100 MG TAB PO SCH (12:24)
[2023-04-04 14:00] VITALS: BP 131/73; TEMP 98.2; O2SAT 95
[2023-04-04 15:18] LABS: BLOOD UREA NITROGEN 18 MG/DL (9-23); CALCIUM LEVEL 10.8 MG/DL (8.3-10.6); CARBON DIOXIDE LEVEL 30 MMOL/L (20-31); CHLORIDE LEVEL 88 MMOL/L (98-107); CREATININE FOR GFR 0.75 MG/DL (0.55-1.30); GLOMERULAR FILTRATION RATE > 60.0 (>45); GLUCOSE, FASTING 121 MG/DL (74-106); POTASSIUM SERUM 4.2 MMOL/L (3.5-5.1); SODIUM LEVEL 127 MMOL/L (136-145)
[2023-04-04 20:00] VITALS: BP 125/61; TEMP 98.3; O2SAT 96
[2023-04-04] MEDS: AZITHROMYCIN 250MG TABLET PO SCH (20:31)
[2023-04-04] MEDS ORDERED: RAMELTEON 8 MG TAB (ROZEREM) PO PRN (22:35)
[2023-04-05] MEDS: ALBUTEROL SULFATE 2.5MG/0.5ML INH NEB SOLN NEB SCH ×7 (00:09→23:13)
[2023-04-05] MEDS: LEVOTHYROXINE 88MCG TABLET (0.088 MG) PO SCH (05:20)
[2023-04-05] MEDS: methylPREDNISolone 40MG 1ML VIAL IV SCH ×3 (05:20→20:28)
[2023-04-05 05:24] VITALS: BP 114/60; TEMP 97.3; O2SAT 95
[2023-04-05 06:18] LABS: BASO % 0.1 % (0.0-1.0); EOS % 0.1 % (0.0-3.0); HEMATOCRIT 43.7 % (36.0-47.0); HEMOGLOBIN 14.8 g/dl (12.0-15.5); LYMPH # 1.2 10^3/uL (1.5-5.0); LYMPH % 10.4 % (24.0-44.0); MEAN CORPUSCULAR HEMOGLOBIN 27.7 pg (27.0-33.0); MEAN CORPUSCULAR HGB CONC 33.9 g/dl (32.0-36.5); MEAN CORPUSCULAR VOLUME 81.8 fl (80.0-96.0); MONO # 0.8 10^3/uL (0.0-0.8); MONO % 7.1 % (2.0-8.0); NEUTROPHILS % 81.8 % (36.0-66.0); PLATELET COUNT, AUTOMATED 366 10^3/uL (150-450); RED BLOOD COUNT 5.34 10^6/uL (4.00-5.40)
[2023-04-05 06:45] LABS: BLOOD UREA NITROGEN 18 MG/DL (9-23); CALCIUM LEVEL 10.7 MG/DL (8.3-10.6); CARBON DIOXIDE LEVEL 31 MMOL/L (20-31); CHLORIDE LEVEL 91 MMOL/L (98-107); CREATININE FOR GFR 0.69 MG/DL (0.55-1.30); GLOMERULAR FILTRATION RATE > 60.0 (>45); GLUCOSE, FASTING 149 MG/DL (74-106); SODIUM LEVEL 128 MMOL/L (136-145)
[2023-04-05] MEDS: SYMBICORT 160/4.5MCG INHALER 6GM INH SCH ×2 (07:50→17:59)
[2023-04-05] MEDS: PRAVASTATIN 20 MG TAB PO SCH (08:27)
[2023-04-05] MEDS: ENOXAPARIN 40MG/0.4ML SYRINGE (J1650 PER 10MG) SC SCH (08:27)
[2023-04-05] MEDS: GABAPENTIN 300 MG CAP PO SCH ×2 (08:27→20:42)
[2023-04-05] MEDS: DOCUSATE SODIUM 100MG CAPSULE PO SCH ×2 (08:27→20:41)
[2023-04-05] MEDS: INSULIN LISPRO (NovoLOG) PER UNIT SC SCH ×4 (08:27→20:52)
[2023-04-05] MEDS: POTASSIUM CHLORIDE 10MEQ SR TABLET PO SCH (08:29)
[2023-04-05] MEDS: SODIUM CHLORIDE 1 GM TAB PO SCH ×3 (08:29→18:06)
[2023-04-05] MEDS: NYSTATIN 100,000 UNITS/GM TOPICAL PWD 15GM TOP SCH ×2 (08:30→20:43)
[2023-04-05] MEDS: allopurinoL 100 MG TAB PO SCH (08:30)
[2023-04-05] MEDS: atenoloL 50 MG TAB PO SCH (08:30)
[2023-04-05] MEDS: MELOXICAM (MOBIC) 7.5 MG TAB PO SCH (08:30)
[2023-04-05] MEDS: CitaloPRAM (CeleXA) 20 MG TAB PO SCH (08:30)
[2023-04-05] MEDS: DEXTROMETHORPHAN 60MG/10ML SUSP 90ML BTL(DELSYM) PO SCH ×2 (09:28→20:56)
[2023-04-05 10:53] LABS: URIC ACID 5.4 MG/DL (3.1-7.8)
[2023-04-05] MEDS ORDERED: FUROSEMIDE 40MG/4ML VIAL IV ONE (10:55)
[2023-04-05 14:00] VITALS: BP 121/65; TEMP 98.2; O2SAT 95
[2023-04-05 17:49] LABS: BLOOD UREA NITROGEN 24 MG/DL (9-23); CALCIUM LEVEL 10.6 MG/DL (8.3-10.6); CARBON DIOXIDE LEVEL 32 MMOL/L (20-31); CHLORIDE LEVEL 91 MMOL/L (98-107); CREATININE FOR GFR 0.73 MG/DL (0.55-1.30); GLOMERULAR FILTRATION RATE > 60.0 (>45); GLUCOSE, FASTING 168 MG/DL (74-106); SODIUM LEVEL 130 MMOL/L (136-145)
[2023-04-05 19:50] VITALS: BP 139/54; TEMP 98.1; O2SAT 91
[2023-04-05] MEDS: AZITHROMYCIN 250MG TABLET PO SCH (20:42)
[2023-04-05 23:02] VITALS: O2SAT 85
[2023-04-05 23:03] VITALS: O2SAT 87
[2023-04-05 23:05] VITALS: O2SAT 90
[2023-04-06] MEDS: ALBUTEROL SULFATE 2.5MG/0.5ML INH NEB SOLN NEB SCH ×6 (02:57→23:12)
[2023-04-06] MEDS: methylPREDNISolone 40MG 1ML VIAL IV SCH ×3 (03:31→20:26)
[2023-04-06 05:52] VITALS: BP 115/58; TEMP 97.9; O2SAT 94
[2023-04-06 06:09] LABS: BASO % 0.2 % (0.0-1.0); EOS % 0.1 % (0.0-3.0); HEMATOCRIT 42.5 % (36.0-47.0); HEMOGLOBIN 14.1 g/dl (12.0-15.5); LYMPH # 0.7 10^3/uL (1.5-5.0); LYMPH % 6.9 % (24.0-44.0); MEAN CORPUSCULAR HEMOGLOBIN 27.3 pg (27.0-33.0); MEAN CORPUSCULAR HGB CONC 33.2 g/dl (32.0-36.5); MEAN CORPUSCULAR VOLUME 82.4 fl (80.0-96.0); MONO # 0.5 10^3/uL (0.0-0.8); MONO % 5.4 % (2.0-8.0); NEUTROPHILS # 8.2 10^3/uL (1.5-8.5); NEUTROPHILS % 85.9 % (36.0-66.0); PLATELET COUNT, AUTOMATED 329 10^3/uL (150-450); RED BLOOD COUNT 5.16 10^6/uL (4.00-5.40); WHITE BLOOD COUNT 9.5 10^3/uL (4.0-10.0)
[2023-04-06 06:31] LABS: BLOOD UREA NITROGEN 24 MG/DL (9-23); CALCIUM LEVEL 9.6 MG/DL (8.3-10.6); CARBON DIOXIDE LEVEL 33 MMOL/L (20-31); CHLORIDE LEVEL 92 MMOL/L (98-107); GLOMERULAR FILTRATION RATE > 60.0 (>45); GLUCOSE, FASTING 171 MG/DL (74-106); POTASSIUM SERUM 4.4 MMOL/L (3.5-5.1); SODIUM LEVEL 130 MMOL/L (136-145)
[2023-04-06] MEDS: LEVOTHYROXINE 88MCG TABLET (0.088 MG) PO SCH (06:34)
[2023-04-06] MEDS: SYMBICORT 160/4.5MCG INHALER 6GM INH SCH ×2 (07:14→19:26)
[2023-04-06] MEDS: GABAPENTIN 300 MG CAP PO SCH ×2 (08:17→20:25)
[2023-04-06] MEDS: DOCUSATE SODIUM 100MG CAPSULE PO SCH ×2 (08:17→20:25)
[2023-04-06] MEDS: POTASSIUM CHLORIDE 10MEQ SR TABLET PO SCH (08:17)
[2023-04-06] MEDS: PRAVASTATIN 20 MG TAB PO SCH (08:17)
[2023-04-06] MEDS: CitaloPRAM (CeleXA) 20 MG TAB PO SCH (08:17)
[2023-04-06] MEDS: INSULIN LISPRO (NovoLOG) PER UNIT SC SCH ×4 (08:17→20:26)
[2023-04-06] MEDS: SODIUM CHLORIDE 1 GM TAB PO SCH ×3 (08:17→18:19)
[2023-04-06] MEDS: allopurinoL 100 MG TAB PO SCH (08:18)
[2023-04-06] MEDS: MELOXICAM (MOBIC) 7.5 MG TAB PO SCH (08:18)
[2023-04-06] MEDS: atenoloL 50 MG TAB PO SCH (08:18)
[2023-04-06] MEDS: ENOXAPARIN 40MG/0.4ML SYRINGE (J1650 PER 10MG) SC SCH (08:18)
[2023-04-06] MEDS: NYSTATIN 100,000 UNITS/GM TOPICAL PWD 15GM TOP SCH ×2 (08:18→20:27)
[2023-04-06] MEDS: DEXTROMETHORPHAN 60MG/10ML SUSP 90ML BTL(DELSYM) PO SCH ×2 (10:22→20:25)
[2023-04-06 10:55] VITALS: BP 120/71; TEMP 97.5; O2SAT 97
[2023-04-06 14:24] VITALS: BP 112/50; TEMP 97.3; O2SAT 95
[2023-04-06] MEDS: AZITHROMYCIN 250MG TABLET PO SCH (20:25)
[2023-04-06 21:03] VITALS: BP 130/78; TEMP 97.7; O2SAT 97
[2023-04-07] MEDS: ALBUTEROL SULFATE 2.5MG/0.5ML INH NEB SOLN NEB SCH ×6 (03:39→23:16)
[2023-04-07] MEDS: methylPREDNISolone 40MG 1ML VIAL IV SCH ×3 (03:59→20:45)
[2023-04-07] MEDS: LEVOTHYROXINE 88MCG TABLET (0.088 MG) PO SCH (05:52)
[2023-04-07 06:00] VITALS: BP 125/79; TEMP 97.9; O2SAT 96
[2023-04-07] MEDS ORDERED: SODI1TAB6 PO (06:43)
[2023-04-07] MEDS ORDERED: POTA-136 PO (06:43)
[2023-04-07] MEDS ORDERED: SYMB16INH INH (06:43)
[2023-04-07] MEDS ORDERED: PRED10TA2 PO (06:45)
[2023-04-07] MEDS ORDERED: DOXY-444 PO (06:45)
[2023-04-07] MEDS ORDERED: PRED20TA PO (06:45)
[2023-04-07] MEDS ORDERED: ALBU8.5H INH (06:45)
[2023-04-07] MEDS: SYMBICORT 160/4.5MCG INHALER 6GM INH SCH ×2 (07:12→19:40)
[2023-04-07 07:23] LABS: BASO % 0.4 % (0.0-1.0); EOS % 0.1 % (0.0-3.0); HEMATOCRIT 44.2 % (36.0-47.0); HEMOGLOBIN 14.6 g/dl (12.0-15.5); LYMPH # 0.9 10^3/uL (1.5-5.0); LYMPH % 9.6 % (24.0-44.0); MEAN CORPUSCULAR HEMOGLOBIN 27.8 pg (27.0-33.0); MONO # 0.6 10^3/uL (0.0-0.8); MONO % 6.1 % (2.0-8.0); NEUTROPHILS # 7.9 10^3/uL (1.5-8.5); NEUTROPHILS % 81.9 % (36.0-66.0); PLATELET COUNT, AUTOMATED 269 10^3/uL (150-450); RED BLOOD COUNT 5.26 10^6/uL (4.00-5.40); WHITE BLOOD COUNT 9.7 10^3/uL (4.0-10.0)
[2023-04-07] MEDS: POTASSIUM CHLORIDE 10MEQ SR TABLET PO SCH (09:00)
[2023-04-07 09:37] LABS: BLOOD UREA NITROGEN 21 MG/DL (9-23); CALCIUM LEVEL 9.3 MG/DL (8.3-10.6); CARBON DIOXIDE LEVEL 22 MMOL/L (20-31); CHLORIDE LEVEL 97 MMOL/L (98-107); CREATININE FOR GFR 0.66 MG/DL (0.55-1.30); GLOMERULAR FILTRATION RATE > 60.0 (>45); GLUCOSE, FASTING 158 MG/DL (74-106); POTASSIUM SERUM 4.9 MMOL/L (3.5-5.1); SODIUM LEVEL 129 MMOL/L (136-145)
[2023-04-07] MEDS: NYSTATIN 100,000 UNITS/GM TOPICAL PWD 15GM TOP SCH ×2 (09:57→20:46)
[2023-04-07] MEDS: INSULIN LISPRO (NovoLOG) PER UNIT SC SCH ×4 (09:57→20:45)
[2023-04-07] MEDS: GABAPENTIN 300 MG CAP PO SCH ×2 (09:58→20:45)
[2023-04-07] MEDS: atenoloL 50 MG TAB PO SCH (09:58)
[2023-04-07] MEDS: allopurinoL 100 MG TAB PO SCH (09:58)
[2023-04-07] MEDS: DOCUSATE SODIUM 100MG CAPSULE PO SCH ×2 (09:59→20:45)
[2023-04-07] MEDS: CitaloPRAM (CeleXA) 20 MG TAB PO SCH (09:59)
[2023-04-07] MEDS: SODIUM CHLORIDE 1 GM TAB PO SCH (09:59)
[2023-04-07] MEDS: MELOXICAM (MOBIC) 7.5 MG TAB PO SCH (09:59)
[2023-04-07] MEDS: PRAVASTATIN 20 MG TAB PO SCH (10:01)
[2023-04-07] MEDS: ENOXAPARIN 40MG/0.4ML SYRINGE (J1650 PER 10MG) SC SCH (10:01)
[2023-04-07] MEDS: DEXTROMETHORPHAN 60MG/10ML SUSP 90ML BTL(DELSYM) PO SCH ×2 (10:01→20:45)
[2023-04-07 14:00] VITALS: BP 121/80; TEMP 97.7; O2SAT 95
[2023-04-07] MEDS ORDERED: TOLVAPTAN 7.5 MG HALF-TAB PO ONE (14:00)
[2023-04-07 20:55] VITALS: BP 128/59; TEMP 97.7; O2SAT 92
[2023-04-08] MEDS: ALBUTEROL SULFATE 2.5MG/0.5ML INH NEB SOLN NEB SCH ×4 (03:19→15:08)
[2023-04-08] MEDS: methylPREDNISolone 40MG 1ML VIAL IV SCH ×2 (04:01→12:37)
[2023-04-08] MEDS: LEVOTHYROXINE 88MCG TABLET (0.088 MG) PO SCH (05:44)
[2023-04-08 06:00] VITALS: BP 149/82; TEMP 97.3; O2SAT 94
[2023-04-08] MEDS: SYMBICORT 160/4.5MCG INHALER 6GM INH SCH (07:09)
[2023-04-08 07:16] LABS: BASO % 0.4 % (0.0-1.0); EOS % 0.1 % (0.0-3.0); HEMATOCRIT 44.5 % (36.0-47.0); HEMOGLOBIN 14.5 g/dl (12.0-15.5); LYMPH % 11.1 % (24.0-44.0); MEAN CORPUSCULAR HEMOGLOBIN 27.4 pg (27.0-33.0); MEAN CORPUSCULAR HGB CONC 32.6 g/dl (32.0-36.5); MEAN CORPUSCULAR VOLUME 84.1 fl (80.0-96.0); MONO # 0.6 10^3/uL (0.0-0.8); MONO % 6.4 % (2.0-8.0); NEUTROPHILS # 6.9 10^3/uL (1.5-8.5); NEUTROPHILS % 80.4 % (36.0-66.0); PLATELET COUNT, AUTOMATED 345 10^3/uL (150-450); RED BLOOD COUNT 5.29 10^6/uL (4.00-5.40); WHITE BLOOD COUNT 8.6 10^3/uL (4.0-10.0)
[2023-04-08 07:40] LABS: BLOOD UREA NITROGEN 21 MG/DL (9-23); CALCIUM LEVEL 10.6 MG/DL (8.3-10.6); CARBON DIOXIDE LEVEL 33 MMOL/L (20-31); CHLORIDE LEVEL 97 MMOL/L (98-107); CREATININE FOR GFR 0.74 MG/DL (0.55-1.30); GLOMERULAR FILTRATION RATE > 60.0 (>45); GLUCOSE, FASTING 144 MG/DL (74-106); POTASSIUM SERUM 5.2 MMOL/L (3.5-5.1); SODIUM LEVEL 134 MMOL/L (136-145)
[2023-04-08] MEDS: INSULIN LISPRO (NovoLOG) PER UNIT SC SCH ×3 (07:59→16:55)
[2023-04-08] MEDS: PRAVASTATIN 20 MG TAB PO SCH (07:59)
[2023-04-08] MEDS: ENOXAPARIN 40MG/0.4ML SYRINGE (J1650 PER 10MG) SC SCH (07:59)
[2023-04-08] MEDS: DEXTROMETHORPHAN 60MG/10ML SUSP 90ML BTL(DELSYM) PO SCH (07:59)
[2023-04-08] MEDS: allopurinoL 100 MG TAB PO SCH (08:00)
[2023-04-08] MEDS: GABAPENTIN 300 MG CAP PO SCH (08:00)
[2023-04-08] MEDS: MELOXICAM (MOBIC) 7.5 MG TAB PO SCH (08:00)
[2023-04-08] MEDS: CitaloPRAM (CeleXA) 20 MG TAB PO SCH (08:00)
[2023-04-08] MEDS: DOCUSATE SODIUM 100MG CAPSULE PO SCH (08:00)
[2023-04-08 08:01] VITALS: BP 139/64
[2023-04-08] MEDS: atenoloL 50 MG TAB PO SCH (08:01)
[2023-04-08] MEDS: NYSTATIN 100,000 UNITS/GM TOPICAL PWD 15GM TOP SCH (08:01)
[2023-04-08] MEDS ORDERED: HYDR50TAB PO (12:01)
[2023-04-08] MEDS ORDERED: BACI1CAP PO (14:06)
[2023-04-08] MEDS ORDERED: SODI1TAB12 PO ×2 (14:06→15:39)
[2023-04-08] MEDS ORDERED: PRED20TA PO (14:06)
[2023-04-08] MEDS ORDERED: DOXY-444 PO (14:06)
[2023-04-08] MEDS ORDERED: ALBU8.5H INH (14:06)
[2023-04-08] MEDS ORDERED: PRED10TA2 PO (14:06)
[2023-04-08] MEDS ORDERED: SYMB16INH INH (14:06)
[2023-04-08] MEDS ORDERED: DOXYCYCLINE HYCLATE 100MG TABLET PO ONE (16:00)
[2023-04-08] MEDS ORDERED: SODIUM CHLORIDE 1 GM TAB PO ONE (16:00)
== END 2023-04-08 17:35 | disposition home health service (06) | DRG 190 ==
LOC: EDBD 15:02 → M ED 15:02 → M ED INP 17:53 → M MS5PR 20:12
PROVIDERS: ADMIT Internal Medicine Nephrology; ATTEND General Practice
PROC: B246ZZZ Ultrasonography of Right and Left Heart (ICD-10-PCS; principal; 2023-04-04)
DX: J44.1 Chronic obstructive pulmonary disease with (acute) exacerbation (principal); J96.01 Acute respiratory failure with hypoxia; E87.1 Hypo-osmolality and hyponatremia; J45.901 Unspecified asthma with (acute) exacerbation; Z68.41 Body mass index [BMI] 40.0-44.9, adult; E22.2 Syndrome of inappropriate secretion of antidiuretic hormone; M10.9 Gout, unspecified; I10 Essential (primary) hypertension; E03.9 Hypothyroidism, unspecified; E11.40 Type 2 diabetes mellitus with diabetic neuropathy, unspecified; E66.01 Morbid (severe) obesity due to excess calories; F32.A Depression, unspecified; F41.9 Anxiety disorder, unspecified; B34.8 Other viral infections of unspecified site; E78.5 Hyperlipidemia, unspecified; R32 Unspecified urinary incontinence; Z99.3 Dependence on wheelchair; Z74.01 Bed confinement status; Z90.49 Acquired absence of other specified parts of digestive tract; Z96.611 Presence of right artificial shoulder joint; Z87.81 Personal history of (healed) traumatic fracture; Z95.828 Presence of other vascular implants and grafts; F17.200 Nicotine dependence, unspecified, uncomplicated; Z79.890 Hormone replacement therapy; Z79.84 Long term (current) use of oral hypoglycemic drugs; Z79.899 Other long term (current) drug therapy; Z88.6 Allergy status to analgesic agent; E83.52 Hypercalcemia

== ENCOUNTER 2023-04-26 15:54 | Emergency (ER) | payer OTHER, MEDICAID ==
[~2023-04-26] VITALS: Ht 162.6 cm; Wt 109.3 kg
[~2023-04-26 15:54] MED LIST changes: -POTA-151
[2023-04-26] MEDS ORDERED: POTASSIUM CHLORIDE 10MEQ SR TABLET PO ONE ×2 (16:25→17:50)
[2023-04-26] MEDS ORDERED: POTA-151 (16:46)
[2023-04-26 17:46] VITALS: BP 104/48; TEMP 96.1; O2SAT 97
== END 2023-04-26 18:05 | disposition home or self-care (01) ==
LOC: EDBD 15:54 → M ED 15:54
DX: E87.6 Hypokalemia (principal); E87.1 Hypo-osmolality and hyponatremia; E03.9 Hypothyroidism, unspecified; E11.9 Type 2 diabetes mellitus without complications; I10 Essential (primary) hypertension; E78.5 Hyperlipidemia, unspecified; J44.9 Chronic obstructive pulmonary disease, unspecified; J45.909 Unspecified asthma, uncomplicated; M54.9 Dorsalgia, unspecified; F17.200 Nicotine dependence, unspecified, uncomplicated; Z88.6 Allergy status to analgesic agent; Z87.891 Personal history of nicotine dependence; Z79.51 Long term (current) use of inhaled steroids; Z79.52 Long term (current) use of systemic steroids; Z79.84 Long term (current) use of oral hypoglycemic drugs; Z79.899 Other long term (current) drug therapy

== ENCOUNTER → 2023-04-26 | Outpatient (REF) | payer OTHER, MEDICAID ==
[~2023-04-26] MED LIST changes: +ALBU8.5H INH; +ARIP1TAB6 PO; +BACI1CAP PO; +CITA40TA7 PO; +DOXY-444 PO; +POTA-151; +PRED10TA2 PO; +PRED20TA PO; +SEMA0.257 SC; +SODI1TAB12 PO; +SODI1TAB6 PO; +SYMB16INH INH
[2023-04-26 14:31] LABS: THYROID STIMULATING HORMONE 1.928 uIU/ML (0.55-4.78)
[2023-04-26 14:33] LABS: FREE T4 1.26 NG/DL (0.89-1.76)
[2023-04-26 14:40] LABS: BLOOD UREA NITROGEN 8 MG/DL (9-23); CALCIUM LEVEL 9.1 MG/DL (8.3-10.6); CARBON DIOXIDE LEVEL 29 MMOL/L (20-31); CHLORIDE LEVEL 95 MMOL/L (98-107); CREATININE FOR GFR 0.57 MG/DL (0.55-1.30); GLOMERULAR FILTRATION RATE > 60.0 (>45); GLUCOSE, FASTING 102 MG/DL (74-106); POTASSIUM SERUM 2.9 MMOL/L (3.5-5.1); SODIUM LEVEL 131 MMOL/L (136-145)
== END ==
LOC: M SHH 12:44
PROVIDERS: ATTEND Nurse Practitioner Family
DX: E87.1 Hypo-osmolality and hyponatremia (principal); E03.9 Hypothyroidism, unspecified

== ENCOUNTER → 2023-05-21 | Outpatient (CLI) | payer OTHER, MEDICAID ==
[~2023-05-21] MED LIST changes: +POTA-151
== END ==
LOC: M SOG 07:57
PROVIDERS: ATTEND Orthopaedic Surgery
DX: Z53.9 Procedure and treatment not carried out, unspecified reason (principal)

== ENCOUNTER → 2023-06-01 | Outpatient (CLI) | payer OTHER, MEDICAID | LOC: M SOG 07:55 | PROVIDERS: ATTEND Orthopaedic Surgery | DX: M25.562 Pain in left knee (principal); Z53.9 Procedure and treatment not carried out, unspecified reason ==

== ENCOUNTER 2023-10-12 12:08 | Emergency (ER) | payer OTHER, MEDICAID ==
[~2023-10-12] VITALS: Ht 162.6 cm; Wt 103.1 kg
[2023-10-12] MEDS: ACETAMINOPHEN TAB 650MG DOSE (2X325MG) PO ONE (13:53)
[2023-10-12 16:20] VITALS: BP 131/60; TEMP 99.1; O2SAT 95
== END 2023-10-12 16:20 | disposition home or self-care (01) ==
LOC: EDBD 12:08 → M ED 12:08
DX: U07.1 COVID-19 (principal); I10 Essential (primary) hypertension; E11.9 Type 2 diabetes mellitus without complications; E03.9 Hypothyroidism, unspecified; F44.9 Dissociative and conversion disorder, unspecified; Z79.899 Other long term (current) drug therapy; Z79.84 Long term (current) use of oral hypoglycemic drugs; Z79.51 Long term (current) use of inhaled steroids

== ENCOUNTER 2024-05-31 03:32 | Inpatient (IN) | payer OTHER, MEDICAID ==
[~2024-05-31] VITALS: Ht 162.6 cm; Wt 103.0 kg
[~2024-05-31 03:32] MED LIST changes: +DOXY-440 PO; -DOXY-444 PO; -POTA-151; +POTA-151 PO
[2024-05-31] MEDS: dexAMETHasone 20MG/5ML VIAL IV ONE (03:54)
[2024-05-31] MEDS: IPRATROPIUM 0.5MG/ALBUTEROL 2.5MG INH SOL UD 3ML (DUONEB) NEB ONE (04:19)
[2024-05-31 04:26] LABS: BLOOD UREA NITROGEN 12 MG/DL (9-23); CALCIUM LEVEL 9.9 MG/DL (8.3-10.6); CARBON DIOXIDE LEVEL 28 MMOL/L (20-31); CHLORIDE LEVEL 91 MMOL/L (98-107); CREATININE FOR GFR 0.62 MG/DL (0.55-1.30); GLOMERULAR FILTRATION RATE > 60.0 (>45); GLUCOSE, FASTING 98 MG/DL (74-106); POTASSIUM SERUM 3.3 MMOL/L (3.5-5.1); SODIUM LEVEL 124 MMOL/L (136-145)
[2024-05-31 05:10] LABS: FREE T4 1.27 NG/DL (0.89-1.76); THYROID STIMULATING HORMONE 8.157 uIU/ML (0.55-4.78)
[2024-05-31 05:14] LABS: OSMOLALITY SERUM 263 MOSM/KG (280-301)
[2024-05-31 05:31] LABS: BASO # 0.1 10^3/uL (0.0-0.2); BASO % 1.1 % (0.0-1.0); EOS # 0.3 10^3/uL (0.0-0.5); EOS % 3.1 % (0.0-3.0); HEMATOCRIT 41.9 % (36.0-47.0); LYMPH % 21.1 % (24.0-44.0); MEAN CORPUSCULAR HEMOGLOBIN 29.8 pg (27.0-33.0); MEAN CORPUSCULAR HGB CONC 35.8 g/dl (32.0-36.5); MEAN CORPUSCULAR VOLUME 83.1 fl (80.0-96.0); MONO # 0.9 10^3/uL (0.0-0.8); MONO % 9.2 % (2.0-8.0); NEUTROPHILS # 6.2 10^3/uL (1.5-8.5); NEUTROPHILS % 65.2 % (36.0-66.0); PLATELET COUNT, AUTOMATED 286 10^3/uL (150-450); RED BLOOD COUNT 5.04 10^6/uL (4.00-5.40); WHITE BLOOD COUNT 9.5 10^3/uL (4.0-10.0)
[2024-05-31 06:18] LABS: CREATININE,RANDOM URINE 24.7 MG/DL
[2024-05-31] MEDS ORDERED: OXYB-54 PO (09:08)
[2024-05-31] MEDS ORDERED: HOME MED LIST COMPLETE! XX SCH (09:25)
[2024-05-31] MEDS ORDERED: DEXTROSE 50% 50ML SYRINGE IV PRN (10:30)
[2024-05-31] MEDS ORDERED: GLUCOSE 4 GM CHEW PO PRN (10:30)
[2024-05-31] MEDS ORDERED: GLUCAGON INJ 1MG VIAL SC PRN (10:30)
[2024-05-31] MEDS ORDERED: IPRATROPIUM 0.5MG/ALBUTEROL 2.5MG INH SOL UD 3ML (DUONEB) NEB PRN (10:45)
[2024-05-31] MEDS: PRAVASTATIN 20 MG TAB PO SCH (11:42)
[2024-05-31] MEDS: CitaloPRAM (CeleXA) 20 MG TAB PO SCH (11:42)
[2024-05-31] MEDS: predniSONE 20 MG TAB PO SCH (11:42)
[2024-05-31] MEDS: DOXYCYCLINE HYCLATE 100MG TABLET PO SCH (11:42)
[2024-05-31] MEDS: POTASSIUM CHLORIDE 10MEQ SR TABLET PO SCH (11:43)
[2024-05-31] MEDS: GABAPENTIN 300 MG CAP PO SCH (11:43)
[2024-05-31] MEDS: atenoloL 50 MG TAB PO SCH (11:45)
[2024-05-31] MEDS: allopurinoL 100 MG TAB PO SCH (11:45)
[2024-05-31] MEDS: oxyBUTYnin *DITROPAN XL* 5 MG TABCR PO SCH (11:45)
[2024-05-31] MEDS: LEVOTHYROXINE 100MCG TABLET (0.1MG) PO SCH (11:45)
[2024-05-31] MEDS: KCL 20MEQ in NS 1000ML 1,000 ML IV SCH (11:54)
[2024-05-31] MEDS: INSULIN LISPRO (NovoLOG) PER UNIT SC SCH ×2 (13:06→20:15)
[2024-05-31] MEDS: IPRATROPIUM 0.5MG/ALBUTEROL 2.5MG INH SOL UD 3ML (DUONEB) NEB SCH (14:13)
[2024-05-31 16:50] VITALS: BP 142/73; TEMP 97.3; O2SAT 96
[2024-05-31 20:06] VITALS: BP 137/69; TEMP 97.2; O2SAT 93
[2024-05-31] MEDS: ENOXAPARIN 40MG/0.4ML SYRINGE (J1650 PER 10MG) SC SCH (20:17)
[2024-06-01 00:04] VITALS: BP 133/64; TEMP 97.3; O2SAT 92
[2024-06-01 04:24] VITALS: BP 164/89; TEMP 97; O2SAT 94
[2024-06-01 07:48] LABS: HEMATOCRIT 41.1 % (36.0-47.0); MEAN CORPUSCULAR HEMOGLOBIN 27.7 pg (27.0-33.0); MEAN CORPUSCULAR HGB CONC 34.1 g/dl (32.0-36.5); MEAN CORPUSCULAR VOLUME 81.4 fl (80.0-96.0); PLATELET COUNT, AUTOMATED 305 10^3/uL (150-450); RED BLOOD COUNT 5.05 10^6/uL (4.00-5.40); WHITE BLOOD COUNT 10.6 10^3/uL (4.0-10.0)
[2024-06-01 08:00] VITALS: BP 134/61; TEMP 97.5; O2SAT 94
[2024-06-01 08:06] LABS: BLOOD UREA NITROGEN 10 MG/DL (9-23); CALCIUM LEVEL 10.1 MG/DL (8.3-10.6); CARBON DIOXIDE LEVEL 25 MMOL/L (20-31); CHLORIDE LEVEL 100 MMOL/L (98-107); CREATININE FOR GFR 0.57 MG/DL (0.55-1.30); GLOMERULAR FILTRATION RATE > 60.0 (>45); GLUCOSE, FASTING 127 MG/DL (74-106); MAGNESIUM LEVEL 1.6 MG/DL (1.8-2.4); POTASSIUM SERUM 4.1 MMOL/L (3.5-5.1); SODIUM LEVEL 131 MMOL/L (136-145)
[2024-06-01 08:27] VITALS: BP 164/89
[2024-06-01] MEDS ORDERED: DOXY100T PO (09:22)
[2024-06-01] MEDS ORDERED: LEVO100T5 PO (09:22)
[2024-06-01] MEDS: methylPREDNISolone 80MG/ML SUSP 1ML VIAL IM ONE (10:56)
== END 2024-06-01 13:21 | disposition home or self-care (01) | DRG 641 ==
LOC: M ED 03:32 → M ED INP 10:30 → M MSPAV 16:51
PROVIDERS: ADMIT Family Medicine; ATTEND Family Medicine
DX: E87.1 Hypo-osmolality and hyponatremia (principal); J44.1 Chronic obstructive pulmonary disease with (acute) exacerbation; J45.901 Unspecified asthma with (acute) exacerbation; F41.9 Anxiety disorder, unspecified; F17.200 Nicotine dependence, unspecified, uncomplicated; E11.40 Type 2 diabetes mellitus with diabetic neuropathy, unspecified; I10 Essential (primary) hypertension; E78.5 Hyperlipidemia, unspecified; E66.01 Morbid (severe) obesity due to excess calories; M10.9 Gout, unspecified; E03.9 Hypothyroidism, unspecified; F32.A Depression, unspecified; G89.29 Other chronic pain; M54.9 Dorsalgia, unspecified; Z74.01 Bed confinement status; R32 Unspecified urinary incontinence; Z86.16 Personal history of COVID-19; Z90.49 Acquired absence of other specified parts of digestive tract; Z96.611 Presence of right artificial shoulder joint; Z79.899 Other long term (current) drug therapy; Z99.3 Dependence on wheelchair; Z68.39 Body mass index [BMI] 39.0-39.9, adult

== ENCOUNTER → 2024-07-21 | Outpatient (REF) | payer OTHER, MEDICAID, MEDICARE ==
[~2024-07-21] MED LIST changes: +DOXY100T PO; +LEVO100T5 PO; +OXYB-54 PO
[2024-07-21 15:34] LABS: ALBUMIN 3.5 G/DL (3.2-5.2); ALKALINE PHOSPHATASE 66 U/L (46-116); ALT/SGPT 11 U/L (7.0-40); AST/SGOT 10 U/L (<34); BILIRUBIN,TOTAL 0.8 MG/DL (0.3-1.2); BLOOD UREA NITROGEN 14 MG/DL (9-23); CALCIUM LEVEL 10.3 MG/DL (8.3-10.6); CARBON DIOXIDE LEVEL 30 MMOL/L (20-31); CHLORIDE LEVEL 94 MMOL/L (98-107); CHOLESTEROL LEVEL 167 MG/DL (<200); CREATININE FOR GFR 0.76 MG/DL (0.55-1.30); GLOMERULAR FILTRATION RATE > 60.0 (>39); GLUCOSE, FASTING 121 MG/DL (74-106); HDL CHOLESTEROL 50.6 MG/DL (>40); LDL CHOLESTEROL 96.2 MG/DL (<100); NON-HDL-C 116.4 MG/DL; POTASSIUM SERUM 4.5 MMOL/L (3.5-5.1); SODIUM LEVEL 131 MMOL/L (136-145); TOTAL PROTEIN 6.3 G/DL (5.7-8.2); TRIGLYCERIDES LEVEL 101 MG/DL (<150)
[2024-07-21 15:36] LABS: FREE T4 1.25 NG/DL (0.89-1.76); HEMOGLOBIN A1c 5.4 % (4.0-6.0); THYROID STIMULATING HORMONE 6.076 uIU/ML (0.55-4.78)
== END ==
LOC: M LABDRWAD 12:56
PROVIDERS: ATTEND Nurse Practitioner Family
DX: E87.1 Hypo-osmolality and hyponatremia (principal); E11.9 Type 2 diabetes mellitus without complications; E03.9 Hypothyroidism, unspecified

== ENCOUNTER 2024-07-25 10:50 | Emergency (ER) | payer OTHER, MEDICAID ==
[~2024-07-25] VITALS: Ht 167.6 cm; Wt 95.5 kg
[2024-07-25 11:07] VITALS: TEMP 97.3
[2024-07-25] MEDS: ACETAMINOPHEN 500 MG TAB PO ONE (13:10)
[2024-07-25 15:34] VITALS: BP 157/70; O2SAT 98
== END 2024-07-25 15:40 | disposition home or self-care (01) ==
LOC: M ED 10:50 → EDBD 10:50 → M ED 15:40
DX: S70.01XA Contusion of right hip, initial encounter (principal); S70.02XA Contusion of left hip, initial encounter; R51.9 Headache, unspecified; W18.30XA Fall on same level, unspecified, initial encounter; Y92.009 Unspecified place in unspecified non-institutional (private) residence as the place of occurrence of the external cause; Y93.9 Activity, unspecified; Y99.9 Unspecified external cause status; E11.9 Type 2 diabetes mellitus without complications; I10 Essential (primary) hypertension; J45.909 Unspecified asthma, uncomplicated; E78.5 Hyperlipidemia, unspecified; E55.9 Vitamin D deficiency, unspecified; E66.9 Obesity, unspecified; Z79.4 Long term (current) use of insulin; Z79.899 Other long term (current) drug therapy; Z88.6 Allergy status to analgesic agent

== ENCOUNTER 2024-08-12 12:13 | Observation (INO) | payer OTHER, MEDICAID ==
[~2024-08-12] VITALS: Ht 167.6 cm; Wt 101.9 kg
[2024-08-12 13:35] LABS: BASO # 0.1 10^3/uL (0.0-0.2); EOS # 0.3 10^3/uL (0.0-0.5); EOS % 4.1 % (0.0-3.0); HEMATOCRIT 37.4 % (36.0-47.0); HEMOGLOBIN 12.5 g/dl (12.0-15.5); LYMPH # 1.1 10^3/uL (1.5-5.0); LYMPH % 17.9 % (24.0-44.0); MEAN CORPUSCULAR HEMOGLOBIN 28.5 pg (27.0-33.0); MEAN CORPUSCULAR HGB CONC 33.4 g/dl (32.0-36.5); MEAN CORPUSCULAR VOLUME 85.2 fl (80.0-96.0); MONO # 0.6 10^3/uL (0.0-0.8); MONO % 9.9 % (2.0-8.0); NEUTROPHILS # 4.1 10^3/uL (1.5-8.5); NEUTROPHILS % 66.4 % (36.0-66.0); PLATELET COUNT, AUTOMATED 239 10^3/uL (150-450); RED BLOOD COUNT 4.39 10^6/uL (4.00-5.40); WHITE BLOOD COUNT 6.1 10^3/uL (4.0-10.0)
[2024-08-12 13:38] LABS: ALBUMIN 3.7 G/DL (3.2-5.2); ALKALINE PHOSPHATASE 54 U/L (35-104); ALT/SGPT 10 U/L (7.0-40); AST/SGOT 8 U/L (<34); BILIRUBIN,DIRECT 0.3 MG/DL (<0.4); BLOOD UREA NITROGEN 21 MG/DL (9-23); CALCIUM LEVEL 10.9 MG/DL (8.3-10.6); CARBON DIOXIDE LEVEL 27 MMOL/L (20-31); CHLORIDE LEVEL 104 MMOL/L (98-107); CREATININE FOR GFR 0.68 MG/DL (0.55-1.30); GLOMERULAR FILTRATION RATE > 60.0 (>39); GLUCOSE, FASTING 92 MG/DL (74-106); SODIUM LEVEL 136 MMOL/L (136-145); TOTAL PROTEIN 6.5 G/DL (5.7-8.2)
[2024-08-12 13:41] LABS: THYROID STIMULATING HORMONE 2.506 uIU/ML (0.55-4.78)
[2024-08-12 13:48] LABS: AMPHETAMINES LEVEL URINE NEGATIVE (NEGATIVE); BARBITURATES URINE NEGATIVE (NEGATIVE); BENZODIAZEPINES URINE NEGATIVE (NEGATIVE); CANNABINOIDS URINE NEGATIVE (NEGATIVE); COCAINE METABOLITE URINE NEGATIVE (NEGATIVE); METHADONE URINE NEGATIVE (NEGATIVE); OPIATES URINE NEGATIVE (NEGATIVE); PHENCYCLIDINE URINE NEGATIVE (NEGATIVE)
[2024-08-12] MEDS ORDERED: LOSA25TA13 PO (15:03)
[2024-08-12] MEDS ORDERED: BUPR1TAB53 PO (15:03)
[2024-08-12] MEDS ORDERED: LEVO100T5 PO (15:03)
[2024-08-12] MEDS ORDERED: HOME MED LIST COMPLETE! XX SCH (15:05)
[2024-08-12] MEDS ORDERED: ALBUTEROL 90 MCG/ACT 8GM HFA INHALER INH PRN (15:45)
[2024-08-12] MEDS ORDERED: GLUCOSE 4 GM CHEW PO PRN (16:10)
[2024-08-12] MEDS ORDERED: GLUCAGON INJ 1MG VIAL SC PRN (16:10)
[2024-08-12] MEDS ORDERED: DEXTROSE 50% 50ML SYRINGE IV PRN (16:10)
[2024-08-12] MEDS: cefTRIAXone SOD 1 GM in DEXTROSE 5% (D5W) ADV/MINI-BAG 50 ML IV ONE (16:16)
[2024-08-12] MEDS: GABAPENTIN 300 MG CAP PO SCH (16:16)
[2024-08-12 17:03] VITALS: BP 144/80; TEMP 98.2; O2SAT 99
[2024-08-12 17:19] LABS: INR 0.99; PROTHROMBIN TIME 13.4 SECONDS (12.5-14.5)
[2024-08-12] MEDS: NICOTINE 14 MG/24 HR TRANSDERMAL TD SCH (17:30)
[2024-08-12] MEDS: buPROPion **SR TABLET** (ZYBAN) 150MG PO SCH (17:54)
[2024-08-12 20:35] VITALS: BP 123/52; TEMP 97.9; O2SAT 99
[2024-08-12] MEDS: INSULIN LISPRO (NovoLOG) PER UNIT SC SCH (20:41)
[2024-08-12] MEDS: ACETAMINOPHEN 325 MG TAB PO PRN (20:44)
[2024-08-13 03:40] VITALS: BP 133/64; TEMP 97.9; O2SAT 98
[2024-08-13] MEDS: LEVOTHYROXINE 100MCG TABLET (0.1MG) PO SCH (05:57)
[2024-08-13 05:58] LABS: HEMATOCRIT 37.5 % (36.0-47.0); HEMOGLOBIN 12.8 g/dl (12.0-15.5); MEAN CORPUSCULAR HEMOGLOBIN 28.8 pg (27.0-33.0); MEAN CORPUSCULAR HGB CONC 34.1 g/dl (32.0-36.5); MEAN CORPUSCULAR VOLUME 84.3 fl (80.0-96.0); PLATELET COUNT, AUTOMATED 217 10^3/uL (150-450); RED BLOOD COUNT 4.45 10^6/uL (4.00-5.40)
[2024-08-13 06:11] LABS: ALBUMIN 3.5 G/DL (3.2-5.2); ALKALINE PHOSPHATASE 58 U/L (35-104); ALT/SGPT 10 U/L (7.0-40); AST/SGOT 12 U/L (<34); BILIRUBIN,TOTAL 1.2 MG/DL (0.3-1.2); BLOOD UREA NITROGEN 17 MG/DL (9-23); CALCIUM LEVEL 10.2 MG/DL (8.3-10.6); CARBON DIOXIDE LEVEL 28 MMOL/L (20-31); CHLORIDE LEVEL 103 MMOL/L (98-107); CREATININE FOR GFR 0.71 MG/DL (0.55-1.30); GLOMERULAR FILTRATION RATE > 60.0 (>39); GLUCOSE, FASTING 115 MG/DL (74-106); POTASSIUM SERUM 4.3 MMOL/L (3.5-5.1); SODIUM LEVEL 131 MMOL/L (136-145); TOTAL PROTEIN 6.5 G/DL (5.7-8.2)
[2024-08-13 09:57] VITALS: BP_SYST 100; BP_SYST 128; BP_DIAS 52; BP_DIAS 61
[2024-08-13] MEDS: LOSARTAN 25 MG TAB PO SCH (10:07)
[2024-08-13] MEDS: atenoloL 50 MG TAB PO SCH (10:08)
[2024-08-13] MEDS: POTASSIUM CHLORIDE 10MEQ SR TABLET PO SCH (10:17)
[2024-08-13] MEDS: PRAVASTATIN 20 MG TAB PO SCH (10:18)
[2024-08-13] MEDS: CitaloPRAM (CeleXA) 20 MG TAB PO SCH (10:18)
[2024-08-13] MEDS: oxyBUTYnin *DITROPAN XL* 5 MG TABCR PO SCH (10:18)
[2024-08-13] MEDS: ENOXAPARIN 40MG/0.4ML SYRINGE (J1650 PER 10MG) SC SCH (10:19)
[2024-08-13] MEDS: allopurinoL 100 MG TAB PO SCH (10:20)
[2024-08-13] MEDS: NS 1,000 ML IV SCH (10:20)
[2024-08-13] MEDS: NYSTATIN 100,000 UNITS/GM TOPICAL PWD 15GM TOP SCH (11:25)
[2024-08-13 12:00] VITALS: BP 147/71; TEMP 97.9; O2SAT 94
[2024-08-13] MEDS: cefTRIAXone SOD 1 GM in DEXTROSE 5% (D5W) ADV/MINI-BAG 50 ML IV SCH (16:19)
[2024-08-13 20:00] VITALS: BP 139/70; TEMP 97.7; O2SAT 96
[2024-08-14 04:00] VITALS: BP 132/70; TEMP 97.9; O2SAT 96
[2024-08-14 05:50] LABS: HEMATOCRIT 35.8 % (36.0-47.0); HEMOGLOBIN 11.9 g/dl (12.0-15.5); MEAN CORPUSCULAR HEMOGLOBIN 28.6 pg (27.0-33.0); MEAN CORPUSCULAR HGB CONC 33.2 g/dl (32.0-36.5); MEAN CORPUSCULAR VOLUME 86.1 fl (80.0-96.0); PLATELET COUNT, AUTOMATED 226 10^3/uL (150-450); RED BLOOD COUNT 4.16 10^6/uL (4.00-5.40); WHITE BLOOD COUNT 3.9 10^3/uL (4.0-10.0)
[2024-08-14 06:15] LABS: ALBUMIN 3.3 G/DL (3.2-5.2); ALKALINE PHOSPHATASE 56 U/L (35-104); ALT/SGPT < 9 U/L (7.0-40); AST/SGOT < 8 U/L (<34); BILIRUBIN,TOTAL 1.1 MG/DL (0.3-1.2); BLOOD UREA NITROGEN 13 MG/DL (9-23); CALCIUM LEVEL 9.6 MG/DL (8.3-10.6); CARBON DIOXIDE LEVEL 29 MMOL/L (20-31); CHLORIDE LEVEL 104 MMOL/L (98-107); GLOMERULAR FILTRATION RATE > 60.0 (>39); GLUCOSE, FASTING 114 MG/DL (74-106); POTASSIUM SERUM 4.3 MMOL/L (3.5-5.1); SODIUM LEVEL 135 MMOL/L (136-145); TOTAL PROTEIN 6.2 G/DL (5.7-8.2)
[2024-08-14 08:50] VITALS: BP_SYST 120; BP_SYST 124; BP_SYST 133; BP_DIAS 58; BP_DIAS 61; BP_DIAS 64
[2024-08-14 12:00] VITALS: BP 124/56; TEMP 97.7; O2SAT 97
[2024-08-14 20:00] VITALS: BP 127/58; TEMP 97; O2SAT 96
[2024-08-15] VITALS (7 sets, daily range): BP systolic 117–159; BP diastolic 56–87; TEMP 97.2–97.9; O2SAT 95–99
[2024-08-15 05:15] LABS: HEMATOCRIT 36.4 % (36.0-47.0); MEAN CORPUSCULAR HEMOGLOBIN 28.8 pg (27.0-33.0); MEAN CORPUSCULAR VOLUME 87.5 fl (80.0-96.0); PLATELET COUNT, AUTOMATED 219 10^3/uL (150-450); RED BLOOD COUNT 4.16 10^6/uL (4.00-5.40); WHITE BLOOD COUNT 4.5 10^3/uL (4.0-10.0)
[2024-08-15 05:43] LABS: ALBUMIN 3.4 G/DL (3.2-5.2); ALKALINE PHOSPHATASE 52 U/L (35-104); ALT/SGPT 10 U/L (7.0-40); AST/SGOT 8 U/L (<34); BILIRUBIN,TOTAL 0.9 MG/DL (0.3-1.2); BLOOD UREA NITROGEN 15 MG/DL (9-23); CARBON DIOXIDE LEVEL 29 MMOL/L (20-31); CHLORIDE LEVEL 103 MMOL/L (98-107); CREATININE FOR GFR 0.77 MG/DL (0.55-1.30); GLOMERULAR FILTRATION RATE > 60.0 (>39); GLUCOSE, FASTING 112 MG/DL (74-106); POTASSIUM SERUM 4.5 MMOL/L (3.5-5.1); SODIUM LEVEL 135 MMOL/L (136-145)
[2024-08-15] MEDS: CEFDINIR 300 MG CAP (OMNICEF) PO SCH (14:30)
[2024-08-16 04:22] VITALS: BP 135/72; TEMP 97.5; O2SAT 98
[2024-08-16 05:17] LABS: HEMATOCRIT 40.9 % (36.0-47.0); HEMOGLOBIN 13.7 g/dl (12.0-15.5); MEAN CORPUSCULAR HEMOGLOBIN 29.1 pg (27.0-33.0); MEAN CORPUSCULAR HGB CONC 33.5 g/dl (32.0-36.5); MEAN CORPUSCULAR VOLUME 86.8 fl (80.0-96.0); PLATELET COUNT, AUTOMATED 239 10^3/uL (150-450); RED BLOOD COUNT 4.71 10^6/uL (4.00-5.40); WHITE BLOOD COUNT 6.8 10^3/uL (4.0-10.0)
[2024-08-16 05:50] LABS: ALBUMIN 3.7 G/DL (3.2-5.2); ALKALINE PHOSPHATASE 66 U/L (35-104); ALT/SGPT 12 U/L (7.0-40); AST/SGOT < 8 U/L (<34); BILIRUBIN,TOTAL 1.3 MG/DL (0.3-1.2); BLOOD UREA NITROGEN 17 MG/DL (9-23); CALCIUM LEVEL 10.6 MG/DL (8.3-10.6); CARBON DIOXIDE LEVEL 28 MMOL/L (20-31); CHLORIDE LEVEL 96 MMOL/L (98-107); GLOMERULAR FILTRATION RATE > 60.0 (>39); GLUCOSE, FASTING 116 MG/DL (74-106); POTASSIUM SERUM 3.9 MMOL/L (3.5-5.1); SODIUM LEVEL 131 MMOL/L (136-145)
[2024-08-16 09:38] VITALS: BP_SYST 100; BP_SYST 97; BP_DIAS 54; BP_DIAS 66
[2024-08-16] MEDS: NS 1,000 ML IV SCH (09:42)
[2024-08-16 12:00] VITALS: BP 107/58; TEMP 99; O2SAT 94
[2024-08-16 20:10] VITALS: BP 110/57; TEMP 97.9; O2SAT 97
[2024-08-16] MEDS: MIRALAX *UNIT DOSE* 17GM PACKET PO PRN (21:06)
[2024-08-17 04:16] VITALS: BP 115/62; TEMP 97.9; O2SAT 97
[2024-08-17 06:16] LABS: HEMATOCRIT 35.5 % (36.0-47.0); MEAN CORPUSCULAR HEMOGLOBIN 29.6 pg (27.0-33.0); MEAN CORPUSCULAR HGB CONC 33.8 g/dl (32.0-36.5); MEAN CORPUSCULAR VOLUME 87.4 fl (80.0-96.0); PLATELET COUNT, AUTOMATED 223 10^3/uL (150-450); RED BLOOD COUNT 4.06 10^6/uL (4.00-5.40); WHITE BLOOD COUNT 4.2 10^3/uL (4.0-10.0)
[2024-08-17 06:58] LABS: ALBUMIN 3.4 G/DL (3.2-5.2); ALKALINE PHOSPHATASE 58 U/L (35-104); ALT/SGPT 11 U/L (7.0-40); AST/SGOT 8 U/L (<34); BILIRUBIN,TOTAL 1.3 MG/DL (0.3-1.2); BLOOD UREA NITROGEN 13 MG/DL (9-23); CALCIUM LEVEL 9.9 MG/DL (8.3-10.6); CARBON DIOXIDE LEVEL 27 MMOL/L (20-31); CHLORIDE LEVEL 103 MMOL/L (98-107); CREATININE FOR GFR 0.66 MG/DL (0.55-1.30); GLOMERULAR FILTRATION RATE > 60.0 (>39); GLUCOSE, FASTING 109 MG/DL (74-106); POTASSIUM SERUM 4.2 MMOL/L (3.5-5.1); SODIUM LEVEL 136 MMOL/L (136-145); TOTAL PROTEIN 6.2 G/DL (5.7-8.2)
[2024-08-17] MEDS ORDERED: CEFD300CAP PO (07:51)
[2024-08-17] MEDS ORDERED: ACET32TAB PO (07:51)
[2024-08-17 09:01] VITALS: BP_SYST 117; BP_SYST 124; BP_DIAS 61
== END 2024-08-17 10:08 | disposition home or self-care (01) ==
LOC: EDBD 12:13 → M ED 12:13 → M ED INP 15:44 → M MSPAV 16:56
PROVIDERS: ADMIT Internal Medicine; ATTEND Internal Medicine
DX: R00.1 Bradycardia, unspecified (principal); T44.7X5A Adverse effect of beta-adrenoreceptor antagonists, initial encounter; I95.2 Hypotension due to drugs; T46.5X5A Adverse effect of other antihypertensive drugs, initial encounter; T50.2X5A Adverse effect of carbonic-anhydrase inhibitors, benzothiadiazides and other diuretics, initial encounter; N39.0 Urinary tract infection, site not specified; B96.4 Proteus (mirabilis) (morganii) as the cause of diseases classified elsewhere; B95.1 Streptococcus, group B, as the cause of diseases classified elsewhere; G93.41 Metabolic encephalopathy; R41.3 Other amnesia; R55 Syncope and collapse; R29.6 Repeated falls; R54 Age-related physical debility; I10 Essential (primary) hypertension; M10.9 Gout, unspecified; E03.9 Hypothyroidism, unspecified; E11.42 Type 2 diabetes mellitus with diabetic polyneuropathy; F32.A Depression, unspecified; F41.9 Anxiety disorder, unspecified; E78.5 Hyperlipidemia, unspecified; J44.9 Chronic obstructive pulmonary disease, unspecified; R35.0 Frequency of micturition; N39.44 Nocturnal enuresis; R63.8 Other symptoms and signs concerning food and fluid intake; E66.01 Morbid (severe) obesity due to excess calories; M47.812 Spondylosis without myelopathy or radiculopathy, cervical region; M47.814 Spondylosis without myelopathy or radiculopathy, thoracic region; M47.816 Spondylosis without myelopathy or radiculopathy, lumbar region; Z96.82 Presence of neurostimulator; I67.82 Cerebral ischemia; Z79.899 Other long term (current) drug therapy; Z79.890 Hormone replacement therapy; Z79.84 Long term (current) use of oral hypoglycemic drugs; Z88.8 Allergy status to other drugs, medicaments and biological substances
CPT/HCPCS: 36415; 70450; 71045; 72125; 80048; 80053; 80076; 80307; 81001; 82140; 83605; 84443; 85025; 85027; 85610; 87040; 87088; 87186; 93005; 93041; 93306; 94760; 96361; 96365; 96372; 96376; 97116; 97161; 97165; 97530; 97535; 99285; G0378; J0696; J1650